=== PATIENT | male | born 1965 | race Caucasian/White ===

== ENCOUNTER 2020-11-11 10:56 | Outpatient (REF) | payer OTHER, SELFPAY ==
[2020-11-11 12:08] LABS: Alanine Aminotransferase 26 U/L (0-40); Albumin Level 4.4 g/dL (3.5-5.0); Alkaline Phosphatase 74 U/L (39-117); Aspartate Amino Transferase 20 U/L (5-37); Bilirubin Direct 0.4 mg/dL (0.0-0.5); Bilirubin Total 0.8 mg/dL (0.0-1.0); Cholesterol 150 mg/dL; HDL Cholesterol 63 mg/dL; LDL Cholesterol Calculated 79 mg/dl; Total Protein 6.6 g/dL (6.5-8.0); Triglycerides 44 mg/dL
[2020-11-11 12:25] LABS: Reflex LDLD? No
== END 2020-11-11 10:57 | disposition home or self-care (01) ==
LOC: HO.LNP 10:56
PROVIDERS: Visit Provider Internal Medicine
DX: E78.00 Pure hypercholesterolemia, unspecified (principal)
CPT/HCPCS: 80061; 80076

== ENCOUNTER 2021-04-26 10:04 | Outpatient (REF) | payer OTHER, SELFPAY ==
[2021-04-26 10:07] LABS: MANUAL DIFF FLAG NO
[2021-04-26 10:38] LABS: Basophils Percent Auto 0.6 % (0-2); Eosinophils Absolute Auto 0.3 X10*3/uL (0.0-0.4); Eosinophils Percent Auto 5.9 % (0-4); Hemoglobin 15.1 g/dl (14.0-18.0); Imm Gran Abs Auto 0.01 X10*3/uL (0.00-0.03); Imm Gran Pct Auto 0.2 % (0.0-0.4); Lymphocytes Absolute Auto 1.9 X10*3/uL (1.2-4.9); Lymphocytes Percent Auto 37.5 % (20-40); Mean Corpuscular HGB Conc 33.6 g/dl (31.0-36.0); Mean Corpuscular Hemoglobin 30.2 pg (27.0-33.0); Mean Platelet Volume 9.6 fL (9.4-12.4); Monocytes Absolute Auto 0.5 X10*3/uL (0.1-1.2); Monocytes Percent Auto 10.1 % (2-11); Neutrophils Absolute Auto 2.3 x10*3/uL (2.0-8.3); Neutrophils Percent Auto 45.7 % (45-73); Platelet Count 288 X10*3/uL (160-400); Red Cell Distribution Width 12.3 % (11.0-16.0); White Blood Count 4.9 X10*3/uL (4.8-10.8)
[2021-04-26 10:53] LABS: Alanine Aminotransferase 56 U/L (0-40); Albumin Level 4.5 g/dL (3.5-5.0); Alkaline Phosphatase 60 U/L (39-117); Anion Gap 13 (12-20); Aspartate Amino Transferase 35 U/L (5-37); Bilirubin Total 0.7 mg/dL (0.0-1.0); Blood Urea Nitrogen 14 mg/dL (9-16); Calcium 9.1 mg/dL (8.4-10.2); Carbon Dioxide 27 mmol/L (22-29); Chloride 106 mmol/L (96-108); Cholesterol 158 mg/dL; Estimated Glomerular Filt Rate > 60; Glucose Fasting 103 mg/dL (60-99); HDL Cholesterol 66 mg/dL; LDL Cholesterol Calculated 79 mg/dl; Sodium 142 mmol/L (135-145); Total Protein 6.9 g/dL (6.5-8.0); Triglycerides 67 mg/dL
[2021-04-26 11:09] LABS: Appearance Urine CLEAR; Color Urine YELLOW; Glucose Urine UA NEG (NEG); Leukocyte Esterase Urine NEG (NEG); Nitrite Urine NEG (NEG); Specific Gravity - Urine 1.025 (1.005-1.025); Urine Blood NEG (NEG); Urine Ketones NEG (NEG); Urine Protein TRACE MG/DL (NEG-TRACE)
[2021-04-26 11:17] LABS: PSA,Total (Free>4and<10) 0.53 ng/mL (0.00-4.00)
[2021-04-26 12:28] LABS: Reflex LDLD? No
== END 2021-04-26 10:05 | disposition home or self-care (01) ==
LOC: HO.LNP 10:04
PROVIDERS: PCP Internal Medicine; Visit Provider Internal Medicine
DX: Z00.00 Encounter for general adult medical examination without abnormal findings (principal); Z12.5 Encounter for screening for malignant neoplasm of prostate; R03.0 Elevated blood-pressure reading, without diagnosis of hypertension; R94.5 Abnormal results of liver function studies; E78.00 Pure hypercholesterolemia, unspecified; K58.9 Irritable bowel syndrome, unspecified
CPT/HCPCS: 80053; 80061; 81003; 84153; 85025

== ENCOUNTER 2022-05-02 11:44 | Outpatient (REF) | payer OTHER, SELFPAY ==
[2022-05-02 11:48] LABS: MANUAL DIFF FLAG NO
[2022-05-02 11:55] LABS: Appearance Urine Clear; Color Urine Yellow; Glucose Urine UA Negative (Negative); Leukocyte Esterase Urine Negative (Negative); Nitrite Urine Negative (Negative); PH 6.5 (5.0-9.0); Specific Gravity - Urine 1.025 (1.005-1.025); Urine Blood Negative (Negative); Urine Ketones Negative (Negative); Urine Protein Negative (Neg-Trace)
[2022-05-02 11:58] LABS: Bacteria Urine None Seen (None Seen); Hyaline Casts Urine 0-2 /LPF (0-2); RBC Urine 0-2 /HPF (0-2); Squamous Epithelial Cell Urine 0-2 /HPF (0-2); WBC Urine 0-5 /HPF (0-5)
[2022-05-02 11:59] LABS: Basophils Percent Auto 0.7 % (0-2); Eosinophils Absolute Auto 0.3 X10*3/uL (0.0-0.4); Eosinophils Percent Auto 4.9 % (0-4); Hematocrit 47.5 % (42.0-52.0); Hemoglobin 15.8 g/dl (14.0-18.0); Imm Gran Abs Auto 0.02 X10*3/uL (0.00-0.03); Imm Gran Pct Auto 0.4 % (0.0-0.4); Lymphocytes Absolute Auto 1.8 X10*3/uL (1.2-4.9); Lymphocytes Percent Auto 34.1 % (20-40); Mean Corpuscular HGB Conc 33.3 g/dl (31.0-36.0); Mean Corpuscular Hemoglobin 29.5 pg (27.0-33.0); Mean Corpuscular Volume 88.8 fL (80.0-98.0); Mean Platelet Volume 9.4 fL (9.4-12.4); Monocytes Absolute Auto 0.5 X10*3/uL (0.1-1.2); Monocytes Percent Auto 9.7 % (2-11); Neutrophils Absolute Auto 2.7 x10*3/uL (2.0-8.3); Neutrophils Percent Auto 50.2 % (45-73); Platelet Count 285 X10*3/uL (160-400); Red Blood Count 5.35 X10*6/uL (4.60-5.80); White Blood Count 5.3 X10*3/uL (4.8-10.8)
[2022-05-02 14:42] LABS: Alanine Aminotransferase 48 U/L (0-40); Albumin Level 4.6 g/dL (3.5-5.0); Alkaline Phosphatase 64 U/L (39-117); Anion Gap 13 (12-20); Aspartate Amino Transferase 29 U/L (5-37); Bilirubin Total 1.2 mg/dL (0.0-1.0); Blood Urea Nitrogen 16 mg/dL (9-16); Calcium 9.6 mg/dL (8.4-10.2); Carbon Dioxide 29 mmol/L (22-29); Chloride 102 mmol/L (96-108); Cholesterol 176 mg/dL; Estimated Glomerular Filt Rate > 60; Glucose Fasting 113 mg/dL (60-99); HDL Cholesterol 72 mg/dL; LDL Cholesterol Calculated 91 mg/dl; Potassium 4.1 mmol/L (3.3-5.1); Sodium 140 mmol/L (135-145); Total Protein 6.8 g/dL (6.5-8.0); Triglycerides 67 mg/dL
== END 2022-05-02 11:45 | disposition home or self-care (01) ==
LOC: HO.LNP 11:44
PROVIDERS: Visit Provider Internal Medicine
DX: Z00.00 Encounter for general adult medical examination without abnormal findings (principal); Z12.5 Encounter for screening for malignant neoplasm of prostate; E78.00 Pure hypercholesterolemia, unspecified
CPT/HCPCS: 80053; 80061; 81001; 84153; 85025

== ENCOUNTER 2022-05-12 11:52 | Outpatient (REF) | payer OTHER, SELFPAY ==
[2022-05-12 12:33] LABS: COVID-19 Test Negative (Negative); IDNOW Serial# 9DB6401D
== END 2022-05-12 11:53 | disposition home or self-care (01) ==
LOC: HO.LAB 11:52
PROVIDERS: Visit Provider Internal Medicine
DX: Z20.822 Contact with and (suspected) exposure to COVID-19 (principal)
CPT/HCPCS: 87635; C9803

== ENCOUNTER 2022-09-26 08:06 | Outpatient (REF) | payer OTHER, SELFPAY ==
--- NOTE | ~2022-09-26 | XR_ITS ---
EXAMINATION: XR chest 2V CLINICAL INFORMATION: Reason for Exam U07.1 COVID 19 COMPARISON: No prior chest x-ray available in our system for comparison at the time of this dictation. TECHNIQUE: XR chest 2V Lungs and Cielo: Both lungs are clear. Pleura: Normal. Costophrenic angles are sharp. No pneumothorax. Heart: The heart is normal in size. Mediastinum: The mediastinum is within normal limits.. Bones: Skeletal structures included are normal for patient's age. XR/XR chest 2V IMPRESSION: No radiographic evidence of acute cardiopulmonary disease.
== END 2022-09-26 08:07 | disposition home or self-care (01) ==
LOC: HO.HMGCX 08:06
PROVIDERS: PCP Internal Medicine; Visit Provider Internal Medicine
DX: U07.1 COVID-19 (principal)
CPT/HCPCS: 71046

== ENCOUNTER 2023-01-19 10:18 | Outpatient (REF) | payer OTHER, SELFPAY ==
[2023-01-19 10:50] LABS: Cholesterol 171 mg/dL; HDL Cholesterol 75 mg/dL; LDL Cholesterol Calculated 85 mg/dl; Triglycerides 55 mg/dL
[2023-01-19 10:52] LABS: Alanine Aminotransferase 28 U/L (0-40); Albumin Level 4.4 g/dL (3.5-5.0); Alkaline Phosphatase 61 U/L (39-117); Aspartate Amino Transferase 20 U/L (5-37); Bilirubin Direct 0.4 mg/dL (0.0-0.5); Bilirubin Total 0.9 mg/dL (0.0-1.0); Total Protein 6.9 g/dL (6.5-8.0)
[2023-01-19 13:50] LABS: Reflex LDLD? No
== END 2023-01-19 10:19 | disposition home or self-care (01) ==
LOC: HO.LNP 10:18
PROVIDERS: PCP Internal Medicine; Visit Provider Internal Medicine
DX: E78.00 Pure hypercholesterolemia, unspecified (principal)
CPT/HCPCS: 80061; 80076

== ENCOUNTER 2023-05-08 11:40 | Outpatient (REF) | payer OTHER, SELFPAY ==
[2023-05-08 11:44] LABS: MANUAL DIFF FLAG NO
[2023-05-08 11:53] LABS: Basophils Absolute Auto 0.1 X10*3/uL (0.0-0.2); Eosinophils Absolute Auto 0.2 X10*3/uL (0.0-0.4); Eosinophils Percent Auto 3.5 % (0-4); Hematocrit 47.4 % (42.0-52.0); Hemoglobin 15.7 g/dl (14.0-18.0); Imm Gran Abs Auto 0.02 X10*3/uL (0.00-0.03); Imm Gran Pct Auto 0.4 % (0.0-0.4); Lymphocytes Absolute Auto 1.9 X10*3/uL (1.2-4.9); Lymphocytes Percent Auto 37.3 % (20-40); Mean Corpuscular HGB Conc 33.1 g/dl (31.0-36.0); Mean Corpuscular Hemoglobin 30.1 pg (27.0-33.0); Mean Corpuscular Volume 90.8 fL (80.0-98.0); Mean Platelet Volume 9.5 fL (9.4-12.4); Monocytes Absolute Auto 0.6 X10*3/uL (0.1-1.2); Monocytes Percent Auto 10.8 % (2-11); Neutrophils Absolute Auto 2.5 x10*3/uL (2.0-8.3); Platelet Count 290 X10*3/uL (160-400); Red Blood Count 5.22 X10*6/uL (4.60-5.80); Red Cell Distribution Width 12.6 % (11.0-16.0); White Blood Count 5.2 X10*3/uL (4.8-10.8)
[2023-05-08 11:55] LABS: Appearance Urine Clear; Color Urine Yellow; Glucose Urine UA Negative (Negative); Leukocyte Esterase Urine Negative (Negative); Nitrite Urine Negative (Negative); PH 6.5 (5.0-9.0); Urine Blood Negative (Negative); Urine Ketones Negative (Negative); Urine Protein Trace mg/dL (Neg-Trace)
[2023-05-08 12:02] LABS: Bacteria Urine None Seen (None Seen); Hyaline Casts Urine 0-2 /LPF (0-2); RBC Urine 0-2 /HPF (0-2); Squamous Epithelial Cell Urine 0-2 /HPF (0-2); WBC Urine 0-5 /HPF (0-5)
[2023-05-08 12:27] LABS: PSA,Total (Free>4and<10) 0.63 ng/mL (0.00-4.00)
[2023-05-08 13:12] LABS: Alanine Aminotransferase 46 U/L (0-40); Albumin Level 4.8 g/dL (3.5-5.0); Alkaline Phosphatase 62 U/L (39-117); Anion Gap 12 (12-20); Aspartate Amino Transferase 32 U/L (5-37); Bilirubin Total 0.9 mg/dL (0.0-1.0); Blood Urea Nitrogen 15 mg/dL (9-16); Calcium 9.8 mg/dL (8.4-10.2); Carbon Dioxide 30 mmol/L (22-29); Chloride 104 mmol/L (96-108); Cholesterol 199 mg/dL (<200); Estimated Glomerular Filt Rate > 60; Glucose Fasting 100 mg/dL (60-99); HDL Cholesterol 79 mg/dL (>40); LDL Cholesterol Calculated 109 mg/dL (<100); Potassium 4.1 mmol/L (3.3-5.1); Sodium 142 mmol/L (135-145); Total Protein 7.4 g/dL (6.5-8.0); Triglycerides 56 mg/dL (<150)
== END 2023-05-08 11:41 | disposition home or self-care (01) ==
LOC: HO.LNP 11:40
PROVIDERS: Visit Provider Internal Medicine
DX: Z00.00 Encounter for general adult medical examination without abnormal findings (principal); Z12.5 Encounter for screening for malignant neoplasm of prostate; E78.00 Pure hypercholesterolemia, unspecified
CPT/HCPCS: 80053; 80061; 81001; 84153; 85025

== ENCOUNTER 2023-11-12 10:59 | Outpatient (REF) | payer OTHER, SELFPAY ==
[2023-11-12 12:27] LABS: Alanine Aminotransferase 57 U/L (0-40); Albumin Level 4.5 g/dL (3.5-5.0); Alkaline Phosphatase 72 U/L (39-117); Aspartate Amino Transferase 34 U/L (5-37); Bilirubin Direct 0.2 mg/dL (0.0-0.5); Bilirubin Total 0.7 mg/dL (0.0-1.0); Cholesterol 152 mg/dL (<200); HDL Cholesterol 68 mg/dL (>40); LDL Cholesterol Calculated 73 mg/dL (<100); Total Protein 6.8 g/dL (6.5-8.0); Triglycerides 58 mg/dL (<150)
== END 2023-11-12 11:00 | disposition home or self-care (01) ==
LOC: HO.LNP 10:59
PROVIDERS: Visit Provider Internal Medicine
DX: E78.00 Pure hypercholesterolemia, unspecified (principal)
CPT/HCPCS: 80061; 80076

== ENCOUNTER 2024-05-12 10:53 | Outpatient (REF) | payer OTHER, SELFPAY ==
[2024-05-12 10:55] LABS: MANUAL DIFF FLAG NO
[2024-05-12 11:30] LABS: Basophils Absolute Auto 0.1 X10*3/uL (0.0-0.2); Basophils Percent Auto 0.7 % (0-2); Eosinophils Absolute Auto 0.3 X10*3/uL (0.0-0.4); Eosinophils Percent Auto 4.4 % (0-4); Hematocrit 47.2 % (42.0-52.0); Hemoglobin 15.9 g/dl (14.0-18.0); Imm Gran Abs Auto 0.02 X10*3/uL (0.00-0.03); Imm Gran Pct Auto 0.3 % (0.0-0.4); Lymphocytes Absolute Auto 2.2 X10*3/uL (1.2-4.9); Lymphocytes Percent Auto 32.5 % (20-40); Mean Corpuscular HGB Conc 33.7 g/dl (31.0-36.0); Mean Corpuscular Hemoglobin 30.3 pg (27.0-33.0); Mean Corpuscular Volume 89.9 fL (80.0-98.0); Mean Platelet Volume 9.5 fL (9.4-12.4); Monocytes Absolute Auto 0.7 X10*3/uL (0.1-1.2); Monocytes Percent Auto 10.7 % (2-11); Neutrophils Absolute Auto 3.5 x10*3/uL (2.0-8.3); Neutrophils Percent Auto 51.4 % (45-73); Platelet Count 291 X10*3/uL (160-400); Red Blood Count 5.25 X10*6/uL (4.60-5.80); Red Cell Distribution Width 12.3 % (11.0-16.0); White Blood Count 6.8 X10*3/uL (4.8-10.8)
[2024-05-12 11:32] LABS: Appearance Urine Clear; Color Urine Yellow; Glucose Urine UA Negative (Negative); Leukocyte Esterase Urine Negative (Negative); Nitrite Urine Negative (Negative); Urine Blood Negative (Negative); Urine Ketones Negative (Negative); Urine Protein Trace mg/dL (Neg-Trace)
[2024-05-12 11:52] LABS: Alanine Aminotransferase 51 U/L (0-40); Albumin Level 4.6 g/dL (3.5-5.0); Alkaline Phosphatase 69 U/L (39-117); Anion Gap 13 (12-20); Aspartate Amino Transferase 43 U/L (5-37); Blood Urea Nitrogen 14 mg/dL (9-16); Calcium 9.7 mg/dL (8.4-10.2); Carbon Dioxide 29 mmol/L (22-29); Chloride 103 mmol/L (96-108); Cholesterol 171 mg/dL (<200); Estimated Glomerular Filt Rate > 60; Glucose Fasting 106 mg/dL (60-99); HDL Cholesterol 71 mg/dL (>40); LDL Cholesterol Calculated 88 mg/dL (<100); Potassium 4.1 mmol/L (3.3-5.1); Sodium 141 mmol/L (135-145); Total Protein 7.1 g/dL (6.5-8.0); Triglycerides 64 mg/dL (<150)
[2024-05-12 12:04] LABS: PSA,Total (Free>4and<10) 0.64 ng/mL (0.00-4.00)
--- OUTSIDE RECORDS SUMMARY | 2024-05-14 14:50 | XMS_ITS ---
Author Organization Chaka Mejia MD Address [address] [place] [phone] Care Team Providers Care Customs Compliance Director Name Role Phone Chaka Mejia Primary Care Provider [phone] REASON FOR VISIT Enrique Dawson - Yearly Bloodwork 05/12/2024 Encounters Encounter Location Date Provider Diagnosis Chaka Mejia MD [address] [place], [place] [phone] 03/31/2024 Chaka Mejia PLAN OF TREATMENT Next Appt Details Provider Name:Chaka carbajal, 05/20/2024 09:30:00 AM, [address], [address], [place], [place], [phone],
--- OUTSIDE RECORDS SUMMARY | 2024-05-14 14:50 | XMS_ITS ---
Author Organization Chaka Mejia MD Address [address] [place] [phone] Care Team Providers Care Dyslexia Teacher Name Role Phone Chaka Mejia Primary Care Provider [phone] ALLERGIES Allergen (clinical drug ingredient) Drug/Non Drug Allergy documented on EMR Reaction Allergy Type Onset Date Status ibuprofen Ibuprofen throat swelling Drug Allergy A ctive aspirin Aspirin throat swelling Drug Allergy A ctive naproxen Aleve throat swelling Drug Allergy A ctive REASON FOR VISIT 6 MO F/U MEDICATIONS Medication SIG (Take, Route, Frequency, Duration) Notes Start Date End Date Status Lansoprazole 30 MG TAKE 1 CAPSULE BY [place] [facility] EVERY DAY for 90 Active Cialis 20 MG 1/2 tablet Orally On a day 12/22/2016 Active Atorvastatin Calcium 20 MG TAKE 1 TABLET BY MOUTH EVERY DAY Active EpiPen 2-Ravi 0.3 MG/0.3ML as directed In jection once a day for reaction for 1 dose 09/21/2016 Active VITAL SIGNS BMI 23.76 kg/m2 11/19/2023 Blood pressure systolic 110 mm Hg 11/19/19 24 Blood pressure diastolic 60 mm Hg 024 Height 67.50 in 11/19/2023 Weight 154 lbs 11/19/2023 Encounters Encounter Location Date Provider Diagnosis Chaka Mejia MD [address] [place] [address] [address] [place], [place] [phone] 11/19/2023 Chaka Mejia Elevated LDL cholesterol level E78.00 and Elevated LFTs R79.89 ASSESSMENTS Encounter Date Diagnosis Assessment Notes Treatment Notes Treatment Clinical Notes 11/19/2023 Elevated LDL cholesterol level (ICD-10 - E78.00) stable, labs reviewed discussed with patient, will continue current regiment 11/19/2023 Elevated LFTs (ICD-10 - R79.89) is secondary to statins, will continue to monitor PLAN OF TREATMENT Medication Medication Name Sig Start Date Stop Date Notes Atorvastatin Calcium 20 MG TAKE 1 TABLET BY MOUTH EVERY DAY Treatment Notes Assessment Notes Elevated LDL cholesterol level stable, l abs reviewed discussed with patient, will continue current regiment Elevated LFTs is secondary to stat ins, will continue to monitor Next Appt Details Provider Name:Chaka Adams ier, 05/20/2024 09:30:00 AM, [address] [place] [address], [address], [place], [place], [phone], Progress Notes * Examination Category Sub-Category Detail Notes General Examination GENERAL APPEARANCE: alert, w ell hydrated, in no distress HEAD: normocephalic HEART: regular rate and rhy thm, no murmurs, rubs, gallops LUNGS: no wheezes, rales, r honchi, good air movement, clear to auscultation bilaterally ABDOMEN: no hepatosplenomegal y, has a small midline hernia SKIN: good turgor
--- OUTSIDE RECORDS SUMMARY | 2024-05-14 14:50 | XMS_ITS ---
Author Organization Chaka Mejia MD Address [address] [place], [place] [phone] Care Team Providers Care Community Outreach Coordinator Name Role Phone Chaka Mejia Primary Care Provider RESULTS Component Value Reference Range Notes Complete Blood Count Auto Di ff Reviewed date:05/13/2024 12:38:59 PM Interpretation: Performing Lab:[facility], [address] [place] [phone] Notes/Report: White Blood Count 6.8 4.8-10.8 X10*3/uL [...] NRBC Abs Auto 0.000 0.0-0.012 X10*3/uL Comprehensive [place]. Panel Fa st Reviewed date:05/12/2024 12:55:17 PM Interpretation: Performing Lab:[facility], [address] [place] [phone] Notes/Report: Sodium 141 135-145 mmol/L Potassium 4.1 [...] Panel Reviewed date:05/12/2024 12:55:42 PM Interpretation: Performing Lab:[address] [phone] Notes/Report: Triglycerides 64 <150 mg/dL Desirable Triglyceride: [...] (Free>4and<10) Reviewed date:05/12/2024 12:55:24 PM Interpretation: Performing Lab:[facility], [address] [place] [phone] Notes/Report: PSA,Total (Free>4and<10) 0.64 0.00-4.00 ng/mL A [...] between 4.0 and 10.0 ng/mL. PSA methodology: clypdnity i Chemiluminescent Microparticle Immunoassay (CMIA) REASON FOR VISIT FASTING LABS with testosterone per pt request MEDICATIONS Medication SIG (Take, Route, Frequency, Duration) Notes Start Date End Date Status Lansoprazole 30 MG TAKE 1 CAPSULE BY [facility] EVERY DAY for 90 Active Atorvastatin Calcium 20 MG TAKE 1 TABLET BY MOUTH EVERY DAY Active Cialis 20 MG 1/2 tablet Orally On ce a day 12/22/2016 Active EpiPen 2-Ravi 0.3 MG/0.3ML as directed In jection once a day for reaction for 1 dose 09/21/2016 Active Encounters Encounter Location Date Provider Diagnosis Chaka Mejia MD [address] [place] [address] Drive [address] [place], [place] [phone] 05/12/2024 Chaka Mejia Blood tests for routine general physical examination Z00.00 ; Elevated LDL cholesterol level E78.00 and Erectile dysfunction, unspecified erectile dysfunction type N52.9 ASSESSMENTS Encounter Date Diagnosis Assessment Notes Treatment Notes Treatment Clinical Notes 05/12/2024 Blood tests for routine general physical examination (ICD-10 - Z00.00) 05/12/2024 Elevated LDL cholesterol level (ICD-10 - E78.00) 05/12/2024 Erectile dysfunction, unspecified erectile dysfunction type (ICD-10 - N52.9) PLAN OF TREATMENT Pending Test Test Name Order Date Testosterone, Free/Total 05/12/2024 UA ClnCatch+Micro w/rflx Cult 05/12/2024 Next Appt Details Provider Name:Chaka carbajal, 05/20/2024 09:30:00 AM, [address] [place] [address], [address], [place], [place], [phone],
--- OUTSIDE RECORDS SUMMARY | 2024-05-14 14:51 | XMS_ITS | Patient Health Record ---
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 Phone Chaka Mejia Primary Care Provider ALLERGIES Allergen (clinical drug ingredient) Drug/Non Drug Allergy documented on EMR Reaction Allergy Type Onset Date Status ibuprofen Ibuprofen throat swelling Drug Allergy A ctive aspirin Aspirin throat swelling Drug Allergy A ctive naproxen Aleve throat swelling Drug Allergy A ctive RESULTS Component Value Reference Range Notes Occult Blood, Stool, Guaiac Reviewed date:05/21/2023 08:42:43 AM Interpretation: Performing Lab: Notes/Report: Occult Blood, Stool, Guaiac Neg Liver Panel Reviewed date:11/12/2023 12:34:35 PM Interpretation: Performing Lab:[facility], [address] [place] [phone] Notes/Report: Bilirubin Total 0.7 0.0-1.0 mg/dL Bilirubin Direct 0.2 0.0-0.5 mg/dL Aspartate Amino Transferase 34 5-37 U/L Alanine Aminotransferase 57 0-40 U/L Total Protein 6.8 6.5-8.0 g/dL Albumin Level 4.5 3.5-5.0 g/dL Alkaline Phosphatase 72 39-117 U/L Lipid Panel Reviewed date:11/12/2023 12:41:38 PM Interpretation: Performing Lab:[address] [phone] Notes/Report: Triglycerides 58 <150 mg/dL Desirable Triglyceride: less than 150 mg/dL Borderline High Triglyceride 150-199 mg/dL High Triglyceride: 200-499 mg/dL Very High Triglyceride: greater than or equal to 5OO mg/dL Cholesterol 152 <200 mg/dL Desirable Cholesterol: less than 200 mg/dL Borderline High Cholesterol: 200-239 mg/dL High Cholesterol: greater than 239 mg/dL LDL Cholesterol Calculated 73 <100 mg/dL Desirable LDL: less than 100 mg/dL Near Optimal/Above Optimal LDL: 110-129 mg/dL Borderline High LDL: 130-159 mg/dL High LDL: 160-189 mg/dL Very High LDL: greater than or equal to 190 mg/dL HDL Cholesterol 68 >40 mg/dL Desirable HDL: greater than 40 mg/dL Note: This HDL assay may give artificially low results in patients with liver disease. UA CC w/rflx Micro + Cult Reviewed date:05/12/2024 01:00:55 PM Interpretation: Performing Lab:[facility], [address] [place] [phone] Notes/Report: Urine, Clean Catch Color Urine Yellow Appearance Urine Clear PH 8.0 5.0-9.0 Glucose Urine UA Negative Negative mg/dL Urine Blood Negative Negative Specific [place] - Urine 1.020 1.005-1.025 Urine Protein Trace Neg-Trace mg/dL Urine Ketones Negative Negative mg/dL Nitrite Urine Negative Negative Leukocyte Esterase Urine Negative Negative Complete Blood Count Auto Di ff Reviewed date:05/13/2024 12:38:59 PM Interpretation: Performing Lab:[address] [phone] Notes/Report: White Blood Count 6.8 4.8-10.8 X10*3/uL [...] NRBC Abs Auto 0.000 0.0-0.012 X10*3/uL Comprehensive [place]. Panel Fa st Reviewed date:05/12/2024 12:55:17 PM Interpretation: Performing Lab:[facility], [address] [place] [phone] Notes/Report: Sodium 141 135-145 mmol/L Potassium 4.1 [...] Panel Reviewed date:05/12/2024 12:55:42 PM Interpretation: Performing Lab:[address] [phone] Notes/Report: Triglycerides 64 <150 mg/dL Desirable Triglyceride: [...] (Free>4and<10) Reviewed date:05/12/2024 12:55:24 PM Interpretation: Performing Lab:[address] [phone] Notes/Report: PSA,Total (Free>4and<10) 0.64 0.00-4.00 ng/mL A [...] between 4.0 and 10.0 ng/mL. PSA methodology: Spinal [place] Alinity i Chemiluminescent Microparticle Immunoassay (CMIA) REASON FOR REFERRAL No Information MEDICATIONS Medication SIG (Take, Route, Frequency, Duration) Notes Start Date End Date Status Lansoprazole 30 MG TAKE 1 CAPSULE BY [facility] EVERY DAY for 90 Active Atorvastatin Calcium 20 MG TAKE 1 TABLET BY MOUTH EVERY DAY Active Cialis 20 MG 1/2 tablet Orally On a day 12/22/2016 Active EpiPen 2-Ravi 0.3 MG/0.3ML as directed In jection once a day for reaction for 1 dose 09/21/2016 Active IMMUNIZATIONS Vaccine Route Administration Date Status Comme nts Flu Vaccine Unknown 03/06/2016 Administered was given t he vaccine at work Fluarix Quadrivalent Unknown 02/13/2017 Administered [facility] TDaP Unknown 03/31/2020 Administered [facility] Covid Vaccine Unknown 08/25/2020 Administered Pfzier [facility] Tetanus Unknown 03/31/2020 Administered SARS-COV-2 Pfizer Unknown 09/15/2020 Administered Fluarix Quadrivalent Unknown 02/24/2021 Administered Fluarix Quadrivalent Unknown 04/24/2022 Administered At Work PPSV23 (Pnemovax) Unknown 10/09/2022 Refused SOCIAL HISTORY Tobacco Use: Social History Observation Description Date Details (start date - stop date) Never Smoker NA - NA Sex Assigned At : Social History Observation Description Sex Assigned At Unknown Tobacco Use/Smoking Question Answer Notes Patient is a nonsmoker Additional Findings: Tobacco Non-User Cu rrent non-smoker, currently using no form of tobacco Alcohol Screen Question Answer Notes Did you have a drink contain ing alcohol in the past year? Yes How often did you have a dri nk containing alcohol in the past year? 4 or more times a week (4 points) How many drinks did you have on a typical day when you were drinking in the past year? 1 or 2 drinks (0 point) How often did you have 6 or more drinks on one occasion in the past year? Never (0 point) Points 4 Interpretation Positive PROBLEMS Problem Type ICD Code Onset Dates Problem Status W/U Status Risk SNOMED Code Notes Problem Reflux esophagitis (K21.00) Active confirmed 480531894 Problem Erectile dysfunction, unspecified erectile dysfunction type (N52.9) Active confirmed 756035015 Problem Elevated LDL cholesterol level (E78.00) Active confirmed 804395744 Problem IBS (irritable bowel syndrome) (K58.9) Active confirmed Irritable bowel syndrome (33748242) Problem History of hay fever (Z87.09) Active confirmed 352895268 Problem History of allergy to NSAID (Z88.6) Active confirmed 570561607 VITAL SIGNS Blood pressure diastolic 60 mm Hg 11/19/2023 Height 67.50 in 11/19/2023 Blood pressure systolic 110 mm Hg 11/19/2023 Weight 154 lbs 11/19/2023 BMI 23.76 kg/m2 11/19/2023 Encounters Encounter Location Date Provider Diagnosis Chaka Mejia MD [address] [place] [id number] 05/17/2023 Chaka Mejia History of allergy to NSAID Z88.6 ; Annual physical exam Z00.00 ; Elevated LDL cholesterol level E78.00 ; Erectile dysfunction, unspecified erectile dysfunction type N52.9 ; Colon cancer screening Z12.11 and Depression screening Z13.31 Chaka Mejia MD [address] [place] [id number] 07/11/2023 Chaka Mejia MD [address] [place] [id number] 05/12/2024 Chaka Mejia Blood tests for routine general physical examination Z00.00 ; Elevated LDL cholesterol level E78.00 and Erectile dysfunction, unspecified erectile dysfunction type N52.9 Chaka Mejia MD [address] [place] [id number] 11/12/2023 Chaka Mejia Elevated LDL cholesterol level E78.00 Chaka Mejia MD [address] [place] [id number] 11/19/2023 Chaka Mejia Elevated LDL cholesterol level E78.00 and Elevated LFTs R79.89 Chaka Mejia MD [address] [place] [address] [id number] 03/31/2024 Chaka Mejia ASSESSMENTS Encounter Date Diagnosis Assessment Notes Treatment Notes Treatment Clinical Notes 05/17/2023 Annual physical exam (ICD-10 - Z00.00) is doing great, ;abs reviewed anbd discussed with patient 05/17/2023 History of allergy to NSAID (ICD-10 - Z88.6) has epipen 05/12/2024 Elevated LDL cholesterol level (ICD-10 - E78.00) 05/12/2024 Blood tests for routine general physical examination (ICD-10 - Z00.00) 11/12/2023 Elevated LDL cholesterol level (ICD-10 - E78.00) 11/19/2023 Elevated LFTs (ICD-10 - R79.89) is secondary to statins, will continue to monitor 11/19/2023 Elevated LDL cholesterol level (ICD-10 - E78.00) stable, labs reviewed discussed with patient, will continue current regiment 05/17/2023 Elevated LDL cholesterol level (ICD-10 - E78.00) stable, will continue current regiment 05/12/2024 Erectile dysfunction, unspecified erectile dysfunction type (ICD-10 - N52.9) 05/17/2023 Erectile dysfunction, unspecified erectile dysfunction type (ICD-10 - N52.9) doing well, will continuecurrent regiment 05/17/2023 Colon cancer screening (ICD-10 - Z12.11) guaiac negative 05/17/2023 Depression screening (ICD-10 - Z13.31) negative screen PLAN OF TREATMENT Pending Test Test Name Order Date Electrocardiogram (EKG) 06/16/2016 CT ABD & PELVIS WITH CONTRAST 10/28/2021 CT ABD & PELVIS WITH CONTRAST 10/09/2011 CT ABD & PELVIS NO CONTRAST 10/28/2021 XR CHEST 2 VIEW PA & LAT 09/25/2022 Testosterone, Free/Total 05/12/2024 UA ClnCatch+Micro w/rflx Cult 05/12/2024 Next Appt Details Provider Name:Chaka carbajal, 05/20/2024 09:30:00 AM, [address] [place] [address], [address], [place], [place], [phone], Insurance Providers Payer Name Payer Address Payer Phone Subscriber Number Group Number Insured Name Patient Relationship to Insured Coverage Start Date Coverage End Date [employer]Z [employer] [address] [place] Nuñez [phone] [id number] Enrique Dawson Self - patient is the insured 6
[2024-05-16 17:38] LABS: Testosterone, Free 89.7 pg/mL (35.0-155.0); Testosterone, Total 477 ng/dL (250-1100)
== END 2024-05-12 10:54 | disposition home or self-care (01) ==
LOC: HO.LNP 10:53
PROVIDERS: Visit Provider Internal Medicine
DX: Z00.00 Encounter for general adult medical examination without abnormal findings (principal); E78.00 Pure hypercholesterolemia, unspecified; N52.9 Male erectile dysfunction, unspecified; Z12.5 Encounter for screening for malignant neoplasm of prostate
CPT/HCPCS: 80053; 80061; 81003; 84153; 84402; 84403; 85025

== ENCOUNTER 2024-10-09 09:51 | Outpatient (REF) | payer OTHER, SELFPAY ==
[2024-10-09 10:20] LABS: Alanine Aminotransferase 42 U/L (0-40); Albumin Level 4.6 g/dL (3.5-5.0); Alkaline Phosphatase 70 U/L (39-117); Aspartate Amino Transferase 34 U/L (5-37); Bilirubin Direct 0.4 mg/dL (0.0-0.5); Cholesterol 170 mg/dL (<200); HDL Cholesterol 66 mg/dL (>40); LDL Cholesterol Calculated 91 mg/dL (<100); Total Protein 7.2 g/dL (6.5-8.0); Triglycerides 67 mg/dL (<150)
--- OUTSIDE RECORDS SUMMARY | 2024-10-09 10:43 | XMS_ITS ---
Author Organization Chaka Mejia MD Address [address] [place] [phone] Care Team Providers Care Cableway Operator Name Role Phone Chaka Mejia Primary Care [...] Lansoprazole 30 MG TAKE 1 CAPSULE BY [facility] EVERY DAY for 90 Active EpiPen 2-Ravi [...] Location Date Provider Diagnosis Chaka Mejia MD [address] [place] [address] [place] [phone] 05/20/2024 Chaka Mejia Aspirin allergy Z88.8 ; [...] (ICD-10 - Z12.11) Cologuard order faxed to [facility] 05/20/2024 Encounter for screening for malignant neoplasm [...] neoplasm of colon Cologuard order faxed to [facility] IBS (irritable bowel syndrome) doing wel l off coffee Elevated LDL cholesterol level on statin s doing a little elevation, will continue current regiment and will contnue to monitor Colon cancer screening guaiac negative Depression screening negative screen Pending Test Test Name Order Date Liver Panel 05/20/2024 Lipid Panel 05/20/2024 Next Appt Details Follow Up: 6 Months, Reason: Provider Name:Chaka carbajal, 10/14/2024 09:00:00 AM, [address] [place] [address], [address] [place] [address], [phone], Provider Name:Chaka carbajal, 05/19/2025 07:15:00 AM, [address] [place] [address], Suite [facility], [place], [place], [phone], Provider Name:Chaka carbajal, 05/26/2025 10:30:00 AM, [address] [place] [address], [address] [place] [address], [phone], Progress Notes * More DAWSON:1965 (58 yo M)Acc No.[id number]:05/20/2024 Progress Notes Patient:Enrique Pyle Provider:?Chaka Mejia MD :1965???Age:58 Y???Sex:Male Humza e:05/20/2024 Address:[address] [place], [place] [phone] Subjective: * Chief Complaints: * ???Annual * HPI: ???Depression Screening:?PHQ-9?Little interest or pleasure in doing things?Not at all,?Feeling down, depressed, or hopeless?Not at all,?Trouble falling or staying asleep, or sleeping too much?Not at all,?Feeling tired or having little energy?Not at all,?Poor appetite or overeating?Not at all,?Feeling bad about yourself or that you are a failure, or have let yourself or your family down?Not at all,?Trouble concentrating on things, such as reading the newspaper or watching television?Not at all,?Moving or speaking so slowly that other people could have noticed; or the opposite, being so fidgety or restless that you have been moving around a lot more than usual?Not at all,?Thoughts that you would be better off or of hurting yourself in some way?Not at all,?Total Score?0.?Interpretation and Intervention?Depression Screening Findings?Negative,?Follow-Up for Depression?: review of PHQ-9 found negative result, no follow-up needed.?Communication Needs:?Communication Needs?Does the patient have a hearing impairment?No,?Does the patient have a vision impairment??No,?Does the patient have a cognition impairment??No.?SDOH Questions:?SDOH Questions?In the past year have you been worried about losing housing??No,?In the past year have you or any family members you live with been unable to get any of the following when it was really needed? Check all that apply:?None.?Symptom(s):? patient is a 58 yo male here for annual visit with review of recent labs and follow up of chronic issues. * ROS:?General/Constitutional:?Patient denies?fatigue , headache.?Change in appetite?denies.?Chills?denies.?Fever?denies.?Ophthalmologic:?Blurred vision?denies.?Discharge?denies.?Pain?denies.?ENT:?Patient denies?decreased sense of smell , any loss of taste , sore throat.?Decreased hearing?denies.?Sore throat?denies.?Swollen glands?denies.?Endocrine:?Cold intolerance?denies.?Excessive thirst?denies.?Heat intolerance?denies.?Weight loss?denies.?Respiratory:?Cough?denies.?Shortness of breath at rest?denies.?Shortness of breath with exertion?denies.?Wheezing?denies.?Cardiovascular:?Chest pain at rest?denies.?Chest pain with exertion?denies.?Irregular heartbeat?denies.?Shortness of breath?denies.?Gastrointestinal:?Abdominal pain?denies.?Change in bowel habits?denies.?Diarrhea?denies.?Nausea?denies.?Rectal bleeding?denies.?Vomiting?denies .?Genitourinary:?Blood in urine?denies.?Difficulty urinating?denies.?Frequent urination?denies.?Musculoskeletal:?Patient denies?muscle aches.?Painful joints?denies.?Weakness?denies.?Peripheral Vascular:?Patient denies?red and blue toes.?Skin:?Dry skin?denies.?Itching?denies.?Denies?Mole(s),? changes in moles, new moles or any lesions of concern.?Denies?Photosensitivity.?Rash?denies.?Neurologic:?Dizziness?denies.?Fainting?denies.?Headache?denies.? * Medical History:? * Surgical History:? * Hospitalization/Major Diagno stic Procedure:? * Family History:?Father: jasper davidson 74 yrs.?Mother: 72 yrs.?1 son(s) , 1 daughter(s) . .? Father-Healthy Mother- Healthy, Denies mental health/substance abuse family history, No pertinent family medical history, Denies mental health/substance abuse family history, Denies mental health/substance abuse family history, Denies mental health/substance abuse family history. * Social History:?Tobacco Use:?Tobacco Use/Smoking?Patient is a?nonsmoker,?Additional Findings: Tobacco Non-User?Current non-smoker, currently using no form of tobacco.?Drugs/Alcohol:?Alcohol Screen?Did you have a drink containing alcohol in the past year??Yes,?How often did you have a drink containing alcohol in the past year??Monthly or less (1 point),?How many drinks did you have on a typical day when you were drinking in the past year??1 or 2 drinks (0 point),?How often did you have 6 or more drinks on one occasion in the past year??Never (0 point),?Points?1,?Interpretation?Negative.?Miscellaneous:?Caffeine: yes, frequency:, 1-2 cups per day. Children: yes. Exercise: yes, weights 4 times a week. Home smoke detector use: yes. Housing: owning. Living with: spouse. Occupation: weeks/months/years, works full-time. Pets: none. no Travel outside of the [place]. * Medications:?TakingEpiPen 2- Ravi 0.3 MG/0.3ML Solution Auto-injector as directed Injection [...] reviewed and reconciled with the patient * Allergies:?Aspirin: throat s wellingIbuprofen: throat swellingAleve: throat swellingyes[Allergies Verified] Objective: * Vitals:?Ht: 67.50, Wt:159, B PR:24.53, BP:122/80 weight is up 5 pounds since 11-19-23. * ???Past Orders: ???Lab:Comprehensive [facility]. P charles Fast (Order Date - 05/12/2024) (Collection Date - 05/12/2024) ? Value Reference Range ?Sodium 141 135-145 - mmo l/L ?Bilirubin Total 1.0 0.0- 1.0 - mg/dL ?Aspartate Amino Transferase 43 H 5-37 - U/L ?Alanine Aminotransferase 51 H 0-40 - U/L ?Total Protein 7.1 6.5-8. 0 - g/dL ?Albumin Level 4.6 3.5-5. 0 - g/dL ?Alkaline Phosphatase 69 39-117 - U/L ?Potassium 4.1 3.3-5.1 - mmol/L ?Chloride 103 96-108 - mm ol/L ?Carbon Dioxide 29 22-29 - mmol/L ?Anion Gap 13 12-20 - ?Blood Urea Nitrogen 14 9-16 - mg/dL ?Creatinine 0.87 0.5-1.4 - mg/dL ?Estimated Glomerular Filt Rate > 60 - ?Glucose Fasting 106 H 60-9 9 - mg/dL ?Calcium 9.7 8.4-10.2 - m g/dL ???Lab:UA CC w/rflx Micro + Cult (Order Date - 05/12/2024) (Collection Date - 05/12/2024) ? Value Reference Range ?Color Urine Yellow - ?Appearance Urine Clear - ?PH 8.0 5.0-9.0 - ?Glucose Urine UA Negative Neg ative - mg/dL ?Urine Blood Negative Negative - ?Specific Falls - Urine 1.020 1.005-1.025 - ?Urine Protein Trace Neg-Tr cynthia - mg/dL ?Urine Ketones Negative Negati ve - mg/dL ?Nitrite Urine Negative Negati ve - ?Leukocyte Esterase Urine Negative Negative - ???Lab:PSA,Total (Free>4and< 10) (Order Date - 05/12/2024) (Collection Date - 05/12/2024) ? Value Reference Range ?PSA,Total (Free>4and<10) 0.64 0.00-4.00 - ng/mL ???Lab:Lipid Panel (Order Da - 05/12/2024) (Collection Date - 05/12/2024) ? Value Reference Range ?Triglycerides 64 <150 - mg/dL ?Cholesterol 171 <200 - m g/dL ?LDL Cholesterol Calculated 88 <100 - mg/dL ?HDL Cholesterol 71 >40 - mg/dL ???Lab:Complete Blood Count Auto Diff (Order Date - 05/12/2024) (Collection Date - 05/12/2024) ? Value Reference Range ?White Blood Count 6.8 4. 8-10.8 - X10*3/uL ?Red Blood Count 5.25 4.60 -5.80 - X10*6/uL ?Hemoglobin 15.9 14.0-18.0 - g/dl ?Hematocrit 47.2 42.0-52.0 - % ?Mean Corpuscular Volume 89.9 80.0-98.0 - fL ?Mean Corpuscular Hemoglobin 30.3 27.0-33.0 - pg ?Mean Corpuscular HGB Conc 33.7 31.0-36.0 - g/dl ?Red Cell Distribution Width 12.3 11.0-16.0 - % ?Platelet Count 291 160-4 00 - X10*3/uL ?Mean Platelet Volume 9.5 9.4-12.4 - fL ?Neutrophils Percent Auto 51.4 45-73 - % ?Imm Gran Pct Auto 0.3 0. 0-0.4 - % ?Lymphocytes Percent Auto 32.5 20-40 - % ?Monocytes Percent Auto 10.7 2-11 - % ?Eosinophils Percent Auto 4.4 H 0-4 - % ?Basophils Percent Auto 0.7 0-2 - % ?NRBC Pct Auto 0.0 0.0-0. 2 - /100WBC ?Neutrophils Absolute Auto 3.5 2.0-8.3 - x10*3/uL ?Imm Gran Abs Auto 0.02 0. 00-0.03 - X10*3/uL ?Lymphocytes Absolute Auto 2.2 1.2-4.9 - X10*3/uL ?Monocytes Absolute Auto 0.7 0.1-1.2 - X10*3/uL ?Eosinophils Absolute Auto 0.3 0.0-0.4 - X10*3/uL ?Basophils Absolute Auto 0.1 0.0-0.2 - X10*3/uL ?NRBC Abs Auto 0.000 0.0-0. 012 - X10*3/uL ???Lab:Testosterone, Free/To polly (Order Date - 05/12/2024) (Collection Date - 05/12/2024) ? Value Reference Range ?Testosterone, Total 966 364-5851 - ng/dL ?Testosterone, Free 89.7 3 5.0-155.0 - pg/mL * Examination: ???General Examination: ?GENERAL APPEARANCE:?well developed, well nourished, in no acute distress.?HEAD:?normocephalic, atraumatic.?EYES:?pupils equal, round, reactive to light and accommodation, sclera non-icteric.?EARS:?normal.?ORAL CAVITY:?mucosa moist.?THROAT:?clear.?NECK/THYROID:?neck supple, full range of motion, no cervical lymphadenopathy, no bruits.?SKIN:?warm and dry, no suspicious lesions.?HEART:?regular rate and rhythm, S1, S2 normal, no murmurs.?LUNGS:?clear to auscultation bilaterally.?ABDOMEN:?soft, nontender, nondistended, bowel sounds present, normal, no organomegaly , no masses palpable.?RECTAL EXAM:?normal tone, no external hemorrhoids, no masses palpable, prostate normal, stool guaiac negative.?MALE GENITOURINARY:?circumcised , no testicular mass , testes descended bilaterally.?EXTREMITIES:?no clubbing, cyanosis, or edema.?NEUROLOGIC:?nonfocal, motor strength normal upper and lower extremities, sensory exam intact.? Assessment: * Assessment: 1.?Annual physical exam - Z0 0.00 (Primary)?2.?Aspirin allergy - Z88.8?3.?Back muscle spasm - M62.830?4.?Encounter for screening for malignant neoplasm of colon - Z12.11?5.?Encounter for screening for malignant neoplasm of rectum - Z12.12?6.?IBS (irritable bowel syndrome) - K58.9?7.?Elevated LDL cholesterol level - E78.00?8.?Colon cancer screening - Z12.11?9.?Depression screening - Z13.31? Plan: * Treatment: 2.?Aspirin allergy? Refill EpiPen 2-Ravi Solution Auto-injector, 0.3 MG/0.3ML, as directed, Injection, once a day for reaction, 1 dose, 2, Refills 4.?LAB: Liver Panel (Ordered for 11/18/2024) ?LAB: Lipid Panel (Ordered for 11/18/2024) 3.?Back muscle spasm? Start tiZANidine HCl Tablet, 4 MG, 1 tablet at bedtime as needed, Orally, Once a day, 30 days, 20, Refills 1.?? 4.?Encounter for screening f or malignant neoplasm of colon?LAB: COLOGUARD Notes: Cologuard order faxed to [facility]?? 5.?Encounter for screening f or malignant neoplasm of rectum?LAB: COLOGUARD 6.?IBS (irritable bowel synd maryse)? Notes: doing well off coffee?? 7.?Elevated LDL cholesterol level? Continue Atorvastatin Calcium Tablet, 20 MG, TAKE 1 TABLET BY MOUTH EVERY DAY.?? Notes: on statins doing a little elevation, will continue current regiment and will contnue to monitor?? 8.?Colon cancer screening? Notes: guaiac negative?? 9.?Depression screening? Notes: negative screen?? * Procedure Codes:? * Follow Up:?6 Months * * Sign off status: Completed true * Provider:?Chaka Mejia MD Date:?1 07/21/2023 Generated for Shawnee campuzano/Luis/eTransmitting on:?10/09/2024 10:43 AM EDT History and Physical Notes * HPI (History [...]
--- OUTSIDE RECORDS SUMMARY | 2024-10-09 10:43 | XMS_ITS ---
Author Organization Chaka Mejia MD Address [address] [place] [phone] Care Team Providers Care Electronics Maintenance Technician Name Role Phone Chaka Mejia Primary Care Provider [phone] Allergies Allergen (clinical drug ingredient) Drug/Non Drug [...] Lansoprazole 30 MG TAKE 1 CAPSULE BY [facility] EVERY DAY for 90 Active [...] Location Date Provider Diagnosis Chaka Mejia MD [address] [place] [phone] 07/25/2024 Chaka Mejia Social phobia involving fear [...] for use Next Appt Details Provider Name:Chaka carbajal, 10/14/2024 09:00:00 AM, [address] [place] [address], [phone], Provider Name:Chaka carbajal, 05/19/2025 07:15:00 AM, [address] [place] [address], [phone], Provider Name:Chaka carbajal, 05/26/2025 10:30:00 AM, [address] [place] [address], [phone], Progress Notes * Dakota DAWSONOB:1965 (58 yo M)Acc No.[id number]:07/25/2024 Progress Notes Patient:?Enrique DAWSON Provider:?Chaka Mejia MD :1965???Age:58 Y???Sex:Male Humza e:07/25/2024 Address: [id number] Subjective: * Chief Complaints: * ???Discuss anxiety * HPI: ???Symptom(s):?patient is a 58 yo male here to discuss issues with anxiety, has struggled with anxiety especially with presentations. does get it with flying. * ROS:?General/Constitutional:?Denies?Chills.?Denies?Fatigue.?Denies?Fever.?Denies?Headache.?ENT:?Patient denies?decreased sense of smell, any loss of taste, sore throat.?Denies?Sore throat.?Respiratory:?Denies?Cough.?Denies?Shortness of breath at rest.?Denies?Shortness of breath with exertion.?Gastrointestinal:?Denies?Diarrhea.?Denies?Nausea.?Musculoskeletal:?Patient denies?muscle aches.?Peripheral Vascular:?Patient denies?red and blue toes.?Psychiatric:?Admits?Anxiety.?Denies?Depressed mood.?Denies?Difficulty sleeping.?Denies?Eating disorder.?Denies?Suicidal thoughts.? * Medical History:? * Surgical History:? * Hospitalization/Major Diagno stic Procedure:? * Medications:?TakingCialis 20 MG Tablet 1/2 tablet Orally Once [...] throat swellingyes[Allergies Verified] Objective: * Vitals:?Ht: 67.50, Wt: 161, BMI:24.84, BP:148/64, Repeat BP:150/70, Wt-k.03. * Examination: ???General Examination: ?GENERAL APPEARANCE:?alert, well hydrated, in no distress.?SKIN:?good turgor.?HEART:?no murmurs, rubs, gallops, regular rate and rhythm.?LUNGS:?no wheezes, rales, rhonchi, good air movement, clear to auscultation bilaterally.? 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 Plan: * Treatment: * Procedure Codes:? * * Sign off status: Completed true * Provider:?Chaka Mejia MD Date:?0 07/25/2024 Generated for Shawnee campuzano/Luis/Asheritting on:?10/09/2024 10:43 AM EDT History and Physical [...]
--- OUTSIDE RECORDS SUMMARY | 2024-10-09 10:43 | XMS_ITS ---
Author Organization Chaka Mejia MD Address [address] [place] [phone] Care Team Providers Care Protohistorian Name Role Phone Chaka Mejia Primary Care Provider Results Component Value Reference Range Notes Liver Panel (Not yet reviewe d by provider) Interpretation: Performing Lab:[facility], [address] [place] [phone] Notes/Report: Bilirubin Total 1.0 0.0-1.0 mg/dL Bilirubin Direct 0.4 0.0-0.5 mg/dL Aspartate Amino Transferase 34 5-37 U/L Alanine Aminotransferase 42 0-40 U/L Total Protein 7.2 6.5-8.0 g/dL Albumin Level 4.6 3.5-5.0 g/dL Alkaline Phosphatase 70 39-117 U/L Lipid Panel (Not yet reviewe d by provider) Interpretation: Performing Lab:[facility], [address] [place] [address] Notes/Report: Triglycerides 67 <150 mg/dL Desirable Triglyceride: [...] Location Date Provider Diagnosis Chaka Mejia MD [address] [place] [address] [place] [phone] 10/09/2024 Chaka Mejia Elevated LDL cholesterol level E78.00 and Aspirin allergy Z88.8 Assessments Encounter Date Diagnosis (ICD Code) Assessment Notes Treatment Notes Treatment Clinical Notes Section Notes 10/09/2024 Elevated LDL cholesterol level (ICD-10 - E78.00) 10/09/2024 Aspirin allergy (ICD-10 - Z88.8) Plan Of Treatment Pending Test Test Name Order Date Liver Panel 10/09/2024 Lipid Panel 10/09/2024 Next Appt Details Provider Name:Chaka carbajal, 10/14/2024 09:00:00 AM, [address] [place] [address], [address], [phone], Provider Name:Chaka carbajal, 05/19/2025 07:15:00 AM, [address] [place] [address], [address], [phone], Provider Name:Chaka carbajal, 05/26/2025 10:30:00 AM, [address] [place] [address], [address], [phone], Progress Notes * Don DAWSONneDOB:1965 (59 yo M)Acc No.[id number]:10/09/2024 Progress Note Patient:?Enrique DAWSON Provider:?Chaka Mejia MD :1965???Age:59 Y???Sex:Male Humza e:10/09/2024 Address:[address] [place], [place] [phone] Subjective: * Chief Complaints: * ???1. Fasting liver lipids. * Medical History:? Objective: * Vitals:? Assessment: * Assessment: 1.?Elevated LDL cholesterol level - E78.00 (Primary)???2.?Aspirin allergy - Z88.8??? Plan: * Treatment: * Procedure Codes:?41079 VENIP UNCT, ROUTINE* * * The named appointment provid er may or may not be the originator of this progress note, and it is not deemed complete until electronically signed by the appointment provider. Sign off status: Pending * Provider:?Chaka Mejia MD Date:?0 10/09/2024 Generated for Shawnee campuzano/Luis/Asheritting on:?10/09/2024 10:43 AM EDT
--- OUTSIDE RECORDS SUMMARY | 2024-10-09 10:44 | XMS_ITS | Patient Health Record ---
Author Organization Chaka Mejia MD Address [address] [place] [phone] Care Team Providers Care Medical Office Manager Name Role Phone Chaka Mejia Primary Care Provider Allergies Allergen (clinical drug ingredient) Drug/Non Drug Allergy documented on EMR Reaction Allergy Type Onset Date Status ibuprofen Ibuprofen throat swelling Drug Allergy A ctive aspirin Aspirin throat swelling Drug Allergy A ctive Aleve throat swelling Drug Allergy A ctive Results Component Value Reference Range Notes Liver Panel Reviewed date:11/12/2023 12:34:35 PM Interpretation: Performing Lab:[facility], [address] [place] [phone] Notes/Report: Bilirubin Total 0.7 0.0-1.0 mg/dL Bilirubin Direct 0.2 0.0-0.5 mg/dL Aspartate Amino Transferase 34 5-37 U/L Alanine Aminotransferase 57 0-40 U/L Total Protein 6.8 6.5-8.0 g/dL Albumin Level 4.5 3.5-5.0 g/dL Alkaline Phosphatase 72 39-117 U/L Lipid Panel Reviewed date:11/12/2023 12:41:38 PM Interpretation: Performing Lab:[facility], [address] [place] [phone] Notes/Report: Triglycerides 58 <150 mg/dL Desirable Triglyceride: [...] low results in patients with liver disease. Complete Blood Count Auto Di ff Reviewed date:05/13/2024 12:38:59 PM Interpretation: Performing Lab:[facility], [address] [place] [phone] Notes/Report: White Blood Count 6.8 4.8-10.8 X10*3/uL [...] NRBC Abs Auto 0.000 0.0-0.012 X10*3/uL Comprehensive [place]. Panel Fa st Reviewed date:05/12/2024 12:55:17 PM Interpretation: Performing Lab:[facility], [address] [place] [phone] Notes/Report: Sodium 141 135-145 mmol/L Potassium 4.1 [...] Panel Reviewed date:05/12/2024 12:55:42 PM Interpretation: Performing Lab:[facility], [address] [place] [phone] Notes/Report: Triglycerides 64 <150 mg/dL Desirable Triglyceride: [...] (Free>4and<10) Reviewed date:05/12/2024 12:55:24 PM Interpretation: Performing Lab:[facility], [address] [place] [phone] Notes/Report: PSA,Total (Free>4and<10) 0.64 0.00-4.00 ng/mL A [...] between 4.0 and 10.0 ng/mL. PSA methodology: Clay Alinity i Chemiluminescent Microparticle Immunoassay (CMIA) Testosterone, Free/Total Reviewed date:05/18/2024 02:18:19 PM Interpretation: Performing Lab:[facility], [address] [place] [phone] Notes/Report: Testosterone, Total 533 778-7986 ng/dL For additional information, please refer to http://education.[employer]/faq/ TotalTestosteroneLCMSMSFAQ 165 (This link is being provided for informational/ educational purposes only.) This test was developed and its analytical performance characteristics have been determined by [employer] [place], [place]. It has not been cleared or approved by the U.S. Food and Drug Administration. This assay has been validated pursuant to the CLIA regulations and is used for clinical purposes. Testosterone, Free 89.7 35.0-155.0 pg/mL This test was developed and its analytical performance characteristics have been determined by [employer] [place], [place]. It has not been cleared or approved by the U.S. Food and Drug Administration. This assay has been validated pursuant to the CLIA regulations and is used for clinical purposes. THIS TEST WAS PERFORMED AT: [facility]/[address] HARRISON NGUYEN MD,PHD Liver Panel (Not yet reviewe d by provider) Interpretation: Performing Lab:[address] [phone] Notes/Report: Bilirubin Total 1.0 0.0-1.0 mg/dL Bilirubin Direct 0.4 0.0-0.5 mg/dL Aspartate Amino Transferase 34 5-37 U/L Alanine Aminotransferase 42 0-40 U/L Total Protein 7.2 6.5-8.0 g/dL Albumin Level 4.6 3.5-5.0 g/dL Alkaline Phosphatase 70 39-117 U/L Lipid Panel (Not yet reviewe d by provider) Interpretation: Performing Lab:[address] [phone] Notes/Report: Triglycerides 67 <150 mg/dL Desirable Triglyceride: [...] Cult Reviewed date:05/12/2024 01:00:55 PM Interpretation: Performing Lab:[facility], [address] [place] [phone] Notes/Report: Urine, Clean Catch Color Urine Yellow Appearance Urine Clear PH 8.0 5.0-9.0 Glucose Urine UA Negative Negative mg/dL Urine Blood Negative Negative Specific [place] - Urine 1.020 1.005-1.025 Urine Protein Trace Neg-Trace mg/dL Urine Ketones Negative Negative mg/dL Nitrite Urine Negative Negative Leukocyte Esterase Urine Negative Negative Reason For Referral No Information Medications Medication SIG (Take, Route, Frequency, Duration) Notes Start Date End Date Status Propranolol HCl 10 MG 1 to 3 tablets Ora lly every 12 hrs for 30 days 07/25/2024 Active Cialis 20 MG 1/2 tablet Orally On ce a day 12/22/2016 Active EpiPen 2-Ravi 0.3 MG/0.3ML as directed In jection once a day for reaction for 1 dose 09/21/2016 Active Lansoprazole 30 MG TAKE 1 CAPSULE BY [facility] EVERY DAY for 90 Active Atorvastatin Calcium 20 MG TAKE 1 TABLET BY MOUTH EVERY DAY Active tiZANidine HCl 4 MG 1 tablet at bedtime as needed Orally Once a day for 30 days 05/20/2024 Active Immunizations Vaccine Route Administration Date Status Comme nts [...] At Work PPSV23 (Pnemovax) Unknown 10/09/2022 Refused Social History Tobacco Use: Social History Observation [...] Never (0 point) Points 1 Interpretation Negative Problems Problem Type SNOMED Code ICD Code Onset Dates Problem Status W/U Status Risk Notes Problem 189649364 Reflux esophagitis (K21.00) Active confirmed Problem 658769829 Erectile dysfunction, unspecified erectile dysfunction type (N52.9) Active confirmed Problem 303012322 Elevated LDL cholesterol level (E78.00) Active confirmed Problem IBS (irritable bowel syndrome) (K58.9) Active confirmed Problem 703830702 History of hay fever (Z87.09) Active confirmed Problem 735516431 History of allergy to NSAID (Z88.6) Active confirmed Vital Signs Blood pressure diastolic 64 mm Hg 07/25/2024 Height 67.50 in 07/25/2024 Blood pressure systolic 148 mm Hg 07/25/2024 Weight 161 lbs 07/25/2024 BMI 24.84 kg/m2 07/25/2024 Encounters Encounter Location Date Provider Diagnosis Chaka Mejia MD [address] [place] [id number] 11/12/2023 Chaka Mejia Elevated LDL cholesterol level E78.00 Chaka Mejia MD [address] [place] [address] Drive [address] [place] [id number] 05/12/2024 Chaka Mejia Blood tests for routine general physical examination Z00.00 ; Elevated LDL cholesterol level E78.00 and Erectile dysfunction, unspecified erectile dysfunction type N52.9 Chaka Mejia MD [address] [place] [id number] 10/09/2024 Chaka Mejia Elevated LDL cholesterol level E78.00 and Aspirin allergy Z88.8 Chaka Mejia MD [address] [place] [id number] 11/19/2023 Chaka Mejia Elevated LDL cholesterol level E78.00 and Elevated LFTs R79.89 Chaka Mejia MD [address] [place] [id number] 05/20/2024 Chaka Mejia Aspirin allergy Z88.8 ; Annual physical exam Z00.00 ; Back muscle spasm M62.830 ; Encounter for screening for malignant neoplasm of colon Z12.11 ; Encounter for screening for malignant neoplasm of rectum Z12.12 ; IBS (irritable bowel syndrome) K58.9 ; Elevated LDL cholesterol level E78.00 ; Colon cancer screening Z12.11 and Depression screening Z13.31 Chaka Mejia MD [address] [place] [id number] 07/25/2024 Chaka Mejia 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 Chaka Mejia MD [address] [place] [address] Drive [address] [place] [id number] 03/31/2024 Chaka Mejia Assessments Encounter Date Diagnosis (ICD Code) Assessment Notes Treatment Notes Treatment Clinical Notes Section Notes 11/12/2023 Elevated LDL cholesterol level (ICD-10 - E78.00) 05/12/2024 Blood tests for routine general physical examination (ICD-10 - Z00.00) 05/12/2024 Elevated LDL cholesterol level (ICD-10 - E78.00) 10/09/2024 Elevated LDL cholesterol level (ICD-10 - E78.00) 11/19/2023 Elevated LDL cholesterol level (ICD-10 - E78.00) stable, labs reviewed discussed with patient, will continue current regiment 11/19/2023 Elevated LFTs (ICD-10 - R79.89) is secondary to statins, will continue to monitor 05/20/2024 Aspirin allergy (ICD-10 - Z88.8) 05/20/2024 Annual physical exam (ICD-10 - Z00.00) labs reviewed and discussed with patient 07/25/2024 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) patient verbalized understanding of medication and directions for use 05/12/2024 Erectile dysfunction, unspecified erectile dysfunction type (ICD-10 - N52.9) 10/09/2024 Aspirin allergy (ICD-10 - Z88.8) 05/20/2024 Back muscle spasm (ICD-10 - M62.830) 05/20/2024 Encounter for screening for malignant neoplasm of colon (ICD-10 - Z12.11) Cologuard order faxed to [facility] 05/20/2024 Encounter for screening for malignant neoplasm [...] - Z13.31) negative screen Plan Of Treatment Pending Test Test Name Order Date Electrocardiogram (EKG) 06/16/2016 CT ABD & PELVIS WITH CONTRAST 10/09/2011 CT ABD & PELVIS WITH CONTRAST 10/28/2021 CT ABD & PELVIS NO CONTRAST 10/28/2021 XR CHEST 2 VIEW PA & LAT 09/25/2022 Liver Panel 10/09/2024 Lipid Panel 10/09/2024 Next Appt Details Provider Name:Chaka Adams ier, 10/14/2024 09:00:00 AM, [address] [place] [address], [address], [phone], Provider Name:Chaka Adams ier, 05/19/2025 07:15:00 AM, [address] [place] [address], [address], [phone], Provider Name:Chaka Adams ier, 05/26/2025 10:30:00 AM, [address] [place] [address], [address], [phone], Insurance Providers Payer Name Payer Address Payer Phone Subscriber Number Group Number Insured Name Patient Relationship to Insured Coverage Start Date Coverage End Date NAZ TORRES [address] MELISSA Nuñez [phone] [id number] Enrique Dawson Self - patient is the insured 6 Medical (General) History Medical History History ICD Code colonoscopy overdue
--- OUTSIDE RECORDS SUMMARY | 2024-10-09 10:44 | XMS_ITS | Clinical Summary ---
Author Organization [facility] Address [address] [place] [phone] Phone Care Team Providers Care Supervisor Painting Name Role Phone Unavailable Primary Care Provider Unavailabl e Social History Tobacco Use Types Packs/Day Years Used Date Smoking Tobacco: Never Assessed Sex and Gender Information Value Date Recorded Sex Assigned at Not on file Legal Sex Male 3:56 PM EDT Gender Identity Not on file Sexual Orientation Not on file Plan of Treatment Health Maintenance Due Date Last Done Comments MMR Vaccines (1 of 1 - Stand jay series) 08/30/1967 Varicella Vaccines (1 of 2 - 13+ 2-dose series) 08/30/1979 DTaP,Tdap,and Td Vaccines (1 - Tdap) 1984 Hepatitis B Vaccines (1 of 3 - 19+ 3-dose series) 1985 Influenza Vaccines (#1) 2024 COVID-19 Vaccine (2023-2 5 season) 2024 HIB Vaccines Aged Out No longer eligi ble based on patient's age to complete this topic HPV Vaccines Aged Out No longer eligi ble based on patient's age to complete this topic Hepatitis A Vaccines Aged Out No long er eligible based on patient's age to complete this topic IPV Vaccines Aged Out No longer eligi ble based on patient's age to complete this topic Men B Vaccine Aged Out No longer elig ible based on patient's age to complete this topic Meningococcal Vaccine Aged Out No curtis elkin eligible based on patient's age to complete this topic Pneumococcal Vaccine Aged Out No long er eligible based on patient's age to complete this topic
== END 2024-10-09 09:52 | disposition home or self-care (01) ==
LOC: HO.LNP 09:51
PROVIDERS: Visit Provider Internal Medicine
DX: Z13.6 Encounter for screening for cardiovascular disorders (principal); Z88.8 Allergy status to other drugs, medicaments and biological substances
CPT/HCPCS: 80061; 80076

== ENCOUNTER 2025-05-19 07:15 | Outpatient (REF) | payer OTHER, SELFPAY ==
--- OUTSIDE RECORDS SUMMARY | 2023-11-19 10:30 | XMS_ITS ---
Author Organization Chaka Mejia MD Address [address] [place] [phone] Care Team Providers Care Health And Safety Tech Name Role Phone Chaka Mejia Primary Care Provider Allergies Allergen (clinical drug ingredient) Drug/Non Drug Allergy documented on EMR Reaction Allergy Type Onset Date Status ibuprofen Ibuprofen throat swelling Drug Allergy A ctive aspirin Aspirin throat swelling Drug Allergy A ctive Aleve throat swelling Drug Allergy A ctive REASON FOR VISIT 6 MO F/U Medications Medication SIG (Take, Route, Frequency, Duration) Notes Start Date End Date Status Lansoprazole 30 MG TAKE [address] [place] [facility] EVERY DAY for 90 Active Cialis 20 MG 1/2 tablet Orally On ce a day 12/22/2016 Active Atorvastatin Calcium 20 MG TAKE 1 TABLET BY MOUTH EVERY DAY Active EpiPen 2-Ravi 0.3 MG/0.3ML as directed In jection once a day for reaction for 1 dose 09/21/2016 Active Vital Signs Blood pressure systolic 110 mm Hg 11/19/19 24 Blood pressure diastolic 60 mm Hg 024 Height 67.50 in 11/19/2023 Weight 154 lbs 11/19/2023 BMI 23.76 kg/m2 11/19/2023 Encounters Encounter Location Date Provider Diagnosis Chaka Mejia MD [address] [place] [address] [place] [phone] 11/19/2023 Chaka Mejia Elevated LDL cholesterol level E78.00 and Elevated LFTs R79.89 Assessments Encounter Date Diagnosis (ICD Code) Assessment Notes Treatment Notes Treatment Clinical Notes Section Notes 11/19/2023 Elevated LDL cholesterol level (ICD-10 - E78.00) stable, labs reviewed discussed with patient, will continue current regiment 11/19/2023 Elevated LFTs (ICD-10 - R79.89) is secondary to statins, will continue to monitor Plan Of Treatment Medication Medication Name Sig Start Date Stop Date Notes Atorvastatin Calcium 20 MG TAKE 1 TABLET BY MOUTH EVERY DAY Treatment Notes Assessment Notes Elevated LDL cholesterol level stable, l abs reviewed discussed with patient, will continue current regiment Elevated LFTs is secondary to stat ins, will continue to monitor Next Appt Details Provider Name:Chaka Adams ier, 05/26/2025 10:30:00 AM, [address] [place] [address], Suite [facility], [place], [place], [phone], Progress Notes * EUNICE, DakotaOB:1965 (58 yo M)Acc No.[id number]:11/19/2023 Progress Notes Patient: Enrique Siddiqi Provider: Amrit Mejia MD :1965 A ge:58 Y S ex:Male Date:11/19/2023 Address:[address] [place] [address] stephanie [id number] Subjective: * Chief Complaints: * 6 MO F/U * HPI: S ymptom(s): patient is a 58 yo male here for 6 month follow up visit. * ROS: G eneral/Constitutional: Denies C hills. D enies F atjennifere. D enies F ever. D enies H eadache. E NT: Patient denies d ecreased sense of smell , any loss of taste , sore throat. D enies S ore throat. R espiratory: Denies C ough. D enies S hortness of breath at rest. D enies S hortness of breath with exertion. G astrointestinal: Denies D iarrhea. D enies N ausea. M usculoskeletal: Patient denies m uscle aches. P eripheral Vascular: Patient denies r ed and blue toes. * Medical History: * Surgical History: * Hospitalization/Major Diagno stic Procedure: * Medications: T akingEpiPen 2-Ravi 0.3 MG/0.3ML Solution Auto-injector as directed Injection once a day for reactionCialis 20 MG Tablet 1/2 tablet Orally Once a dayAtorvastatin Calcium 20 MG Tablet TAKE 1 TABLET BY MOUTH EVERY DAY Lansoprazole 30 MG Capsule Delayed Release TAKE 1 CAPSULE BY MOUTH EVERY DAY Medication List reviewed and reconciled with the patientTaking EpiPen 2-Ravi 0.3 MG/0.3ML Solution Auto-injector as directed Injection once a day for reactionTaking Cialis 20 MG Tablet 1/2 tablet Orally Once a dayTaking Atorvastatin Calcium 20 MG Tablet TAKE 1 TABLET BY MOUTH EVERY DAY Taking Lansoprazole 30 MG Capsule Delayed Release TAKE 1 CAPSULE BY MOUTH EVERY DAY Medication List reviewed and reconciled with the patient * Allergies: A spirin: throat swellingIbuprofen: throat swellingAleve: throat swellingyes[Allergies Verified] Objective: * Vitals: H t: 67.50, Wt:154, BMI:23.76, BP:110/60. * P ast Orders: L ab:Liver Panel (Order Date - 11/12/2023) (Collection Date - 11/12/2023) Value Reference Range Bilirubin Total 0.7 0.0-1.0 - mg/dL Bilirubin Direct 0.2 0.0-0.5 - mg/dL Aspartate Amino Transferase 34 5-37 - U/L Alanine Aminotransferase 57 H 0-40 - U/L Total Protein 6.8 6.5-8.0 - g/dL Albumin Level 4.5 3.5-5.0 - g/dL Alkaline Phosphatase 72 39-117 - U/L L ab:Lipid Panel (Order Date - 11/12/2023) (Collection Date - 11/12/2023) Value Reference Range Triglycerides 58 <150 - mg/dL Cholesterol 152 <200 - mg/dL LDL Cholesterol Calculated 73 <100 - mg/dL HDL Cholesterol 68 >40 - mg/dL * Examination: G eneral Examination: GENERAL APPEARANCE: alert, well hydrated, in no distress . HEAD: normocephalic. SKIN: good turgor. HEART: regular rate and rhythm, no murmurs, rubs, gallops. LUNGS: no wheezes, rales, rhonchi, good air movement, clear to auscultation bilaterally. ABDOMEN: no hepatosplenomegaly, has a small midline hernia. Assessment: * Assessment: 1. E levated LDL cholesterol level - E78.00 (Primary) 2 . E levated LFTs - R79.89 Plan: * Treatment: 2. E levated LFTs Notes: is secondary to statins, will continue to monitor. * Procedure Codes: * * Sign off status: Completed true * Provider: Amrit Mejia MD Date: 0 11/19/2023 Generated for Shawnee campuzano/Luis/eTransmitting on: 1 07/20/2024 01:32 PM EST History and Physical Notes * HPI (History of Present Illness) Category Sub-Category Detail Notes Category Not es Symptom(s) patient is a 58 yo male here for 6 month follow up visit Examination Category Sub-Category Detail Notes Category Not es General Examination GENERAL APPEARANCE: alert, w ell hydrated, in no distress HEAD: normocephalic HEART: regular rate and rhy thm, no murmurs, rubs, gallops LUNGS: no wheezes, rales, r honchi, good air movement, clear to auscultation bilaterally ABDOMEN: no hepatosplenomegal y, has a small midline hernia SKIN: good turgor
--- OUTSIDE RECORDS SUMMARY | 2024-03-31 09:27 | XMS_ITS ---
Author Organization Chaka Mejia MD Address [address] [place] [phone] Care Team Providers Care Title Abstractor Name Role Phone Chaka Mejia Primary Care Provider REASON FOR VISIT Enrique Dawson - Yearly Bloodwork 05/12/2024 Encounters Encounter Location Date Provider Diagnosis Chaka Mejia MD [address] [place], [place] [phone] 03/31/2024 Chaka Mejia Plan Of Treatment Next Appt Details Provider Name:Chaka carbajal, 05/26/2025 10:30:00 AM, [address], Suite [facility], [place], [place], [phone], Progress Notes * Dakota DAWSONOB:1965 (58 yo M)Acc No.[id number]:03/31/2024 Patient: Enrique Siddiqi :1965 A ge:58 Y S ex:Male Address:[address] [place] [address] [place] [address] * true * Date: Generated for Shawnee campuzano/Luis/Kayleysmitting on: 07/20/2024 01:32 PM EST
--- OUTSIDE RECORDS SUMMARY | 2024-05-12 02:00 | XMS_ITS ---
Author Organization Chaka Mejia MD Address [address] [place] [phone] Care Team Providers Care Data Integrity Specialist Name Role Phone Chaka Mejia Primary Care Provider Results Component Value Reference Range Notes Complete Blood Count Auto Di ff Reviewed date:05/13/2024 12:38:59 PM Interpretation: Performing Lab:[facility], [address] [place] [phone] Notes/Report: White Blood Count 6.8 4.8-10.8 X10*3/uL Red Blood Count 5.25 4.60-5.80 X10*6/uL Hemoglobin 15.9 14.0-18.0 g/dl Hematocrit 47.2 42.0-52.0 % Mean Corpuscular Volume 89.9 80.0-98.0 fL Mean Corpuscular Hemoglobin 30.3 27.0-33.0 pg Mean Corpuscular HGB Conc 33.7 31.0-36.0 g/dl Red Cell Distribution Width 12.3 11.0-16.0 % Platelet Count 291 160-400 X10*3/uL Mean Platelet Volume 9.5 9.4-12.4 fL Neutrophils Percent Auto 51.4 45-73 % Imm Gran Pct Auto 0.3 0.0-0.4 % Lymphocytes Percent Auto 32.5 20-40 % Monocytes Percent Auto 10.7 2-11 % Eosinophils Percent Auto 4.4 0-4 % Basophils Percent Auto 0.7 0-2 % NRBC Pct Auto 0.0 0.0-0.2 /100WBC Neutrophils Absolute Auto 3.5 2.0-8.3 x10*3/u L Imm Gran Abs Auto 0.02 0.00-0.03 X10*3/uL Lymphocytes Absolute Auto 2.2 1.2-4.9 X10*3/u L Monocytes Absolute Auto 0.7 0.1-1.2 X10*3/uL Eosinophils Absolute Auto 0.3 0.0-0.4 X10*3/u L Basophils Absolute Auto 0.1 0.0-0.2 X10*3/uL NRBC Abs Auto 0.000 0.0-0.012 X10*3/uL Comprehensive [place]. Panel Fa st Reviewed date:05/12/2024 12:55:17 PM Interpretation: Performing Lab:[facility], [address] [place] [phone] Notes/Report: Sodium 141 135-145 mmol/L Potassium 4.1 3.3-5.1 mmol/L Chloride 103 96-108 mmol/L Carbon Dioxide 29 22-29 mmol/L Anion Gap 13 12-20 Blood Urea Nitrogen 14 9-16 mg/dL Creatinine 0.87 0.5-1.4 mg/dL Estimated Glomerular Filt Rate > 60 Chronic Kidney Disease: Estimated GFR < 60 mL/min/1.73m2 Severe Kidney Disease: Estimated GFR < 15 mL/min/1.73m2 Glucose Fasting 106 60-99 mg/dL A fasting glucose from 100-125 mg/dl is considered impaired (pre-diabetes). Calcium 9.7 8.4-10.2 mg/dL Bilirubin Total 1.0 0.0-1.0 mg/dL Aspartate Amino Transferase 43 5-37 U/L Alanine Aminotransferase 51 0-40 U/L Total Protein 7.1 6.5-8.0 g/dL Albumin Level 4.6 3.5-5.0 g/dL Alkaline Phosphatase 69 39-117 U/L Lipid Panel Reviewed date:05/12/2024 12:55:42 PM Interpretation: Performing Lab:[address] [phone] Notes/Report: Triglycerides 64 <150 mg/dL Desirable Triglyceride: less than 150 mg/dL Borderline High Triglyceride 150-199 mg/dL High Triglyceride: 200-499 mg/dL Very High Triglyceride: greater than or equal to 5OO mg/dL Cholesterol 171 <200 mg/dL Desirable Cholesterol: less than 200 mg/dL Borderline High Cholesterol: 200-239 mg/dL High Cholesterol: greater than 239 mg/dL LDL Cholesterol Calculated 88 <100 mg/dL Desirable LDL: less than 100 mg/dL Near Optimal/Above Optimal LDL: 110-129 mg/dL Borderline High LDL: 130-159 mg/dL High LDL: 160-189 mg/dL Very High LDL: greater than or equal to 190 mg/dL HDL Cholesterol 71 >40 mg/dL Desirable HDL: greater than 40 mg/dL Note: This HDL assay may give artificially low results in patients with liver disease. PSA,Total (Free>4and<10) Reviewed date:05/12/2024 12:55:24 PM Interpretation: Performing Lab:[address] [phone] Notes/Report: PSA,Total (Free>4and<10) 0.64 0.00-4.00 ng/mL A Free PSA was not performed: The percentage of Free PSA can be used to enhance the differentiation of prostate cancer from benign prostatic disease in subjects whose PSA levels are between 4.0 and 10.0 ng/mL. For subjects whose PSA levels are below 4.0 or above 10.0 ng/mL, the risk of prostate cancer is determined on the basis of the PSA alone. Therefore the % Free PSA is recommended only for those subjects whose PSA levels are between 4.0 and 10.0 ng/mL. PSA methodology: [employer] Chemiluminescent Microparticle Immunoassay (CMIA) Testosterone, Free/Total Reviewed date:05/18/2024 02:18:19 PM Interpretation: Performing Lab:[facility], [address] [facility], [place] [address] Notes/Report: Testosterone, Total 677 194-0104 ng/dL For additional information, please refer to http://education.Welocalize.Bitbrains/faq/ [email or web address] 5 (This link is being provided for informational/ educational purposes only.) This test was developed and its analytical performance characteristics have been determined by [facility] [place], [place]. It has not been cleared or approved by the U.S. Food and Drug Administration. This assay has been validated pursuant to the CLIA regulations and is used for clinical purposes. Testosterone, Free 89.7 35.0-155.0 pg/mL This test was developed and its analytical performance characteristics have been determined by [facility] [place], [place]. It has not been cleared or approved by the U.S. Food and Drug Administration. This assay has been validated pursuant to the CLIA regulations and is used for clinical purposes. THIS TEST WAS PERFORMED AT: [employer] [address] [phone] HARRISON NGUYEN MD,PHD REASON FOR VISIT FASTING LABS with testosterone per pt request Medications Medication SIG (Take, Route, Frequency, Duration) Notes Start Date End Date Status Lansoprazole 30 MG TAKE 1 CAPSULE BY [facility] EVERY DAY for 90 Active Atorvastatin Calcium 20 MG TAKE 1 TABLET BY MOUTH EVERY DAY Active Cialis 20 MG 1/2 tablet Orally On day 12/22/2016 Active EpiPen 2-Ravi 0.3 MG/0.3ML as directed In jection once a day for reaction for 1 dose 09/21/2016 Active Encounters Encounter Location Date Provider Diagnosis Chaka Mejia MD [address] [place], [place] [phone] 05/12/2024 Chaka Mejia Blood tests for routine general physical examination Z00.00 ; Elevated LDL cholesterol level E78.00 and Erectile dysfunction, unspecified erectile dysfunction type N52.9 Assessments Encounter Date Diagnosis (ICD Code) Assessment Notes Treatment Notes Treatment Clinical Notes Section Notes 05/12/2024 Blood tests for routine general physical examination (ICD-10 - Z00.00) 05/12/2024 Elevated LDL cholesterol level (ICD-10 - E78.00) 05/12/2024 Erectile dysfunction, unspecified erectile dysfunction type (ICD-10 - N52.9) Plan Of Treatment Next Appt Details Provider Name:Chaka Adams ier, 05/26/2025 10:30:00 AM, [address] [facility], [address], [place], [place], [phone], Progress Notes * Don DAWSONGarrickOB:1965 (59 yo M)Acc No.[id number]:05/12/2024 Progress Note Patient: Enrique WANG Provider: Amrit Mejia MD :1965 A ge:58 Y S ex:Male Date:05/12/2024 Address:[address] [place], [place] [phone] Subjective: * Chief Complaints: * 1 . FASTING LABS with testosterone per pt request. * Medical History: * Medications: T aking EpiPen 2-Ravi 0.3 MG/0.3ML Solution Auto-injector as directed Injection once a day for reaction , Taking Cialis 20 MG Tablet 1/2 tablet Orally Once a day , Taking Atorvastatin Calcium 20 MG Tablet TAKE 1 TABLET BY MOUTH EVERY DAY , Taking Lansoprazole 30 MG Capsule Delayed Release TAKE 1 CAPSULE BY MOUTH EVERY DAY Objective: * Vitals: Assessment: * Assessment: 1. B lood tests for routine general physical examination - Z00.00 (Primary) 2 .?Elevated LDL cholesterol level - E78.00 3 . E rectile dysfunction, unspecified erectile dysfunction type - N52.9 Plan: * Treatment: 2. E levated LDL cholesterol level L AB: UA ClnCatch+Micro w/rflx Cult (Order Cancelled) L AB: Complete Blood Count Auto Diff (Collection Date & Time - 05/12/2024 07:00 AM) L AB: Comprehensive [place]. Panel Fast (Collection Date & Time - 05/12/2024 07:00 AM) L AB: Lipid Panel (Collection Date & Time - 05/12/2024 07:00 AM) L AB: PSA,Total (Free>4and<10) (Collection Date & Time - 05/12/2024 07:00 AM) 3. E rectile dysfunction, unspecified erectile dysfunction type L AB: Testosterone, Free/Total (Collection Date & Time - 05/12/2024 07:00 AM) * Procedure Codes: 3 6415 VENIPUNCT, ROUTINE* * * The named appointment provid er may or may not be the originator of this progress note, and it is not deemed complete until electronically signed by the appointment provider. Sign off status: Pending * Provider: Amrit Mejia MD Date: 07/13/2023 Generated for Shawnee campuzano/Luis/Kayleysmitting on: 07/20/2024 01:32 PM EST
--- OUTSIDE RECORDS SUMMARY | 2024-05-20 04:30 | XMS_ITS ---
Author Organization Chaka Mejia MD Address [address] [place] [phone] Care Team Providers Care Millwright Supervisor Name Role Phone Chaka Mejia Primary Care Provider Allergies Allergen (clinical drug ingredient) Drug/Non Drug Allergy documented on EMR Reaction Allergy Type Onset Date Status ibuprofen Ibuprofen throat swelling Drug Allergy A ctive aspirin Aspirin throat swelling Drug Allergy A ctive Aleve throat swelling Drug Allergy A ctive REASON FOR VISIT Annual Medications Medication SIG (Take, Route, Frequency, Duration) Notes Start Date End Date Status Lansoprazole 30 MG TAKE 1 CAPSULE BY [facility] EVERY DAY for 90 Active EpiPen 2-Ravi 0.3 MG/0.3ML as directed In jection once a day for reaction for 1 dose 09/21/2016 Active Cialis 20 MG 1/2 tablet Orally On ce a day 12/22/2016 Active tiZANidine HCl 4 MG 1 tablet at bedtime as needed Orally Once a day for 30 days 05/20/2024 Active Atorvastatin Calcium 20 MG TAKE 1 TABLET BY MOUTH EVERY DAY Active Social History Tobacco Use: Social History Observation Description Date Details (start date - stop date) Never Smoker NA - NA Tobacco Use/Smoking Question Answer Notes Patient is a nonsmoker Additional Findings: Tobacco Non-User Cu rrent non-smoker, currently using no form of tobacco Alcohol Screen Question Answer Notes Did you have a drink contain ing alcohol in the past year? Yes How often did you have a dri nk containing alcohol in the past year? Monthly or less (1 point) How many drinks did you have on a typical day when you were drinking in the past year? 1 or 2 drinks (0 point) How often did you have 6 or more drinks on one occasion in the past year? Never (0 point) Points 1 Interpretation Negative Vital Signs Blood pressure systolic 122 mm Hg 05/20/20 24 Blood pressure diastolic 80 mm Hg 024 Height 67.50 in 05/20/2024 Weight 159 lbs 05/20/2024 BMI 24.53 kg/m2 05/20/2024 weight is up 5 pounds since 11-19-23 Encounters Encounter Location Date Provider Diagnosis Chaka Mejia MD [address] [place] [address] [place] [phone] 05/20/2024 Chaka Mejia Aspirin allergy Z88.8 ; Annual physical exam Z00.00 ; Back muscle spasm M62.830 ; Encounter for screening for malignant neoplasm of colon Z12.11 ; Encounter for screening for malignant neoplasm of rectum Z12.12 ; IBS (irritable bowel syndrome) K58.9 ; Elevated LDL cholesterol level E78.00 ; Colon cancer screening Z12.11 and Depression screening Z13.31 Assessments Encounter Date Diagnosis (ICD Code) Assessment Notes Treatment Notes Treatment Clinical Notes Section Notes 05/20/2024 Aspirin allergy (ICD-10 - Z88.8) 05/20/2024 Annual physical exam (ICD-10 - Z00.00) labs reviewed and discussed with patient 05/20/2024 Back muscle spasm (ICD-10 - M62.830) 05/20/2024 Encounter for screening for malignant neoplasm of colon (ICD-10 - Z12.11) Cologuard order faxed to [facility] 05/20/2024 Encounter for screening for malignant neoplasm of rectum (ICD-10 - Z12.12) 05/20/2024 IBS (irritable bowel syndrome) (ICD-10 - K58.9) doing well off coffee 05/20/2024 Elevated LDL cholesterol level (ICD-10 - E78.00) on statins doing a little elevation, will continue current regiment and will contnue to monitor 05/20/2024 Colon cancer screening (ICD-10 - Z12.11) guaiac negative 05/20/2024 Depression screening (ICD-10 - Z13.31) negative screen Plan Of Treatment Medication Medication Name Sig Start Date Stop Date Notes EpiPen 2-Ravi 0.3 MG/0.3ML as directed In jection once a day for reaction for 1 dose 09/21/2016 tiZANidine HCl 4 MG 1 tablet at bedtime as needed Orally Once a day for 30 days 05/20/2024 Atorvastatin Calcium 20 MG TAKE 1 TABLET BY MOUTH EVERY DAY Treatment Notes Assessment Notes Annual physical exam labs reviewed and d iscussed with patient Encounter for screening for malignant neoplasm of colon Cologuard order faxed to [facility] IBS (irritable bowel syndrome) doing wel l off coffee Elevated LDL cholesterol level on statin s doing a little elevation, will continue current regiment and will contnue to monitor Colon cancer screening guaiac negative Depression screening negative screen Next Appt Details Follow Up: 6 Months, Reason: Provider Name:Chaka stapletonr, 05/26/2025 10:30:00 AM, [address] [place] [address], [address], [place], [place], [phone], Progress Notes * Dakota DAWSONOB:1965 (58 yo M)Acc No.[id number]:05/20/2024 Progress Notes Patient: Enrique Siddiqi Provider: Amrit Mejia MD :1965 A ge:58 Y S ex:Male Date:05/20/2024 Address:[address] [place], [place] [id number] Subjective: * Chief Complaints: * A nnual * HPI: D epression Screening: PHQ-9 L ittle interest or pleasure in doing things N ot at all, F eeling down, depressed, or hopeless N ot at all, T rouble falling or staying asleep, or sleeping too much N ot at all, F eeling tired or having little energy N ot at all, P oor appetite or overeating N ot at all, F eeling bad about yourself or that you are a failure, or have let yourself or your family down N ot at all, T rouble concentrating on things, such as reading the newspaper or watching television N ot at all, M oving or speaking so slowly that other people could have noticed; or the opposite, being so fidgety or restless that you have been moving around a lot more than usual N ot at all, T houghts that you would be better off or of hurting yourself in some way N ot at all, T otal Score 0 . I nterpretation and Intervention D epression Screening Findings N egative, F ollow-Up for Depression : review of PHQ-9 found negative result, no follow-up needed. C ommunication Needs: Communication Needs D oes the patient have a hearing impairment N o, D oes the patient have a vision impairment? N o, D oes the patient have a cognition impairment? N o. S RAHEEL Questions: SDOH Questions I n the past year have you been worried about losing housing? N o, I n the past year have you or any family members you live with been unable to get any of the following when it was really needed? Check all that apply: N one. S ymptom(s): patient is a 58 yo male here for annual visit with review of recent labs and follow up of chronic issues. * ROS: G eneral/Constitutional: Patient denies f atigue , headache. C hange in appetite?denies. C hills d enies. F ever d enies. O phthalmologic: Blurred vision d enies. D ischarge d enies. P ain d enies. E NT: Patient denies d ecreased sense of smell , any loss of taste , sore throat. D ecreased hearing d enies. S ore throat d enies. S wollen glands d enies. E ndocrine: Cold intolerance d enies. E xcessive thirst d enies. H eat intolerance d enies. W eight loss d enies. R espiratory: Cough d enies. S hortness of breath at rest d enies. S hortness of breath with exertion d enies. W heezing d enies. C ardiovascular: Chest pain at rest d enies. C hest pain with exertion?denies. I rregular heartbeat d enies. S hortness of breath d enies. ? G astrointestinal: Abdominal pain d enies. C hange in bowel habits d enies. D iarrhea d enies. N ausea d enies. R ectal bleeding d enies. V omiting d enies . G enitourinary: Blood in urine d enies. D ifficulty urinating d enies. F requent urination d enies. M usculoskeletal: Patient denies m uscle aches. P ainful joints d enies. W eakness d enies. P eripheral Vascular: Patient denies r ed and blue toes. S kin: Dry skin d enies. I tching d enies. D enies?Mole(s), changes in moles, new moles or any lesions of concern. D enies P hotosensitivity. R brissa d enies. N eurologic: Dizziness d enies. F ainting d enies. H eadache?denies. * Medical History: * Surgical History: * Hospitalization/Major Diagno stic Procedure: * Family History: F ather: alive 74 yrs. M other: 72 yrs. 1 son(s) , 1 daughter(s) . . Father-Healthy Mother- Healthy, Denies mental health/substance abuse family history, No pertinent family medical history, Denies mental health/substance abuse family history, Denies mental health/substance abuse family history, Denies mental health/substance abuse family history. * Social History: T obacco Use: T obacco Use/Smoking P atient is a n onsmoker, A dditional Findings: Tobacco Non-User C urrent non-smoker, currently using no form of tobacco. D rugs/Alcohol: A lcohol Screen D id you have a drink containing alcohol in the past year? Y es, H ow often did you have a drink containing alcohol in the past year? M onthly or less (1 point), H ow many drinks did you have on a typical day when you were drinking in the past year? 1 or 2 drinks (0 point), H ow often did you have 6 or more drinks on one occasion in the past year? N ever (0 point), P oints 1 , I nterpretation N egative. M iscellaneous: C affeine: yes, frequency:, 1-2 cups per day. Children: yes. Exercise: yes, weights 4 times a week. Home smoke detector use: yes. Housing: owning. Living with: spouse. Occupation: weeks/months/years, works full-time. Pets: none. no Travel outside of the [place]. * Medications: T akingEpiPen 2-Ravi 0.3 MG/0.3ML [...] Verified] Objective: * Vitals: H t: 67.50, Wt:159, BMI:24.53, BP:122/80 weight is up 5 pounds since 11-19-23. * P ast Orders: L ab:Comprehensive [place]. Panel Fast (Order Date - 05/12/2024) (Collection Date - 05/12/2024) Value Reference Range Sodium 141 135-145 - mmol/L Bilirubin Total 1.0 0.0-1.0 - mg/dL Aspartate Amino Transferase 43 H 5-37 - U/L Alanine Aminotransferase 51 H 0-40 - U/L Total Protein 7.1 6.5-8.0 - g/dL Albumin Level 4.6 3.5-5.0 - g/dL Alkaline Phosphatase 69 39-117 - U/L Potassium 4.1 3.3-5.1 - mmol/L Chloride 103 96-108 - mmol/L Carbon Dioxide 29 22-29 - mmol/L Anion Gap 13 12-20 - Blood Urea Nitrogen 14 9-16 - mg/dL Creatinine 0.87 0.5-1.4 - mg/dL Estimated Glomerular Filt Rate > 60 - Glucose Fasting 106 H 60-99 - mg/dL Calcium 9.7 8.4-10.2 - mg/dL L ab:UA CC w/rflx Micro + Cult (Order Date - 05/12/2024) (Collection Date - 05/12/2024) Value Reference Range Color Urine Yellow - Appearance Urine Clear - PH 8.0 5.0-9.0 - Glucose Urine UA Negative Negative - mg/dL Urine Blood Negative Negative - Specific [place] - Urine 1.020 1.005-1.025 - Urine Protein Trace Neg-Trace - mg/dL Urine Ketones Negative Negative - mg/dL Nitrite Urine Negative Negative - Leukocyte Esterase Urine Negative Negative - L ab:PSA,Total (Free>4and<10) (Order Date - 05/12/2024) (Collection Date - 05/12/2024) Value Reference Range PSA,Total (Free>4and<10) 0.64 0.00-4.00 - ng/ mL L ab:Lipid Panel (Order Date - 05/12/2024) (Collection Date - 05/12/2024) Value Reference Range Triglycerides 64 <150 - mg/dL Cholesterol 171 <200 - mg/dL LDL Cholesterol Calculated 88 <100 - mg/dL HDL Cholesterol 71 >40 - mg/dL L ab:Complete Blood Count Auto Diff (Order Date - 05/12/2024) (Collection Date - 05/12/2024) Value Reference Range White Blood Count 6.8 4.8-10.8 - X10*3/uL Red Blood Count 5.25 4.60-5.80 - X10*6/uL Hemoglobin 15.9 14.0-18.0 - g/dl Hematocrit 47.2 42.0-52.0 - % Mean Corpuscular Volume 89.9 80.0-98.0 - fL Mean Corpuscular Hemoglobin 30.3 27.0-33.0 - pg Mean Corpuscular HGB Conc 33.7 31.0-36.0 - g/ dl Red Cell Distribution Width 12.3 11.0-16.0 - % Platelet Count 291 160-400 - X10*3/uL Mean Platelet Volume 9.5 9.4-12.4 - fL Neutrophils Percent Auto 51.4 45-73 - % Imm Gran Pct Auto 0.3 0.0-0.4 - % Lymphocytes Percent Auto 32.5 20-40 - % Monocytes Percent Auto 10.7 2-11 - % Eosinophils Percent Auto 4.4 H 0-4 - % Basophils Percent Auto 0.7 0-2 - % NRBC Pct Auto 0.0 0.0-0.2 - /100WBC Neutrophils Absolute Auto 3.5 2.0-8.3 - x10* 3/uL Imm Gran Abs Auto 0.02 0.00-0.03 - X10*3/uL Lymphocytes Absolute Auto 2.2 1.2-4.9 - X10* 3/uL Monocytes Absolute Auto 0.7 0.1-1.2 - X10*3/ uL Eosinophils Absolute Auto 0.3 0.0-0.4 - X10* 3/uL Basophils Absolute Auto 0.1 0.0-0.2 - X10*3/ uL NRBC Abs Auto 0.000 0.0-0.012 - X10*3/uL L ab:Testosterone, Free/Total (Order Date - 05/12/2024) (Collection Date - 05/12/2024) Value Reference Range Testosterone, Total [phone] - ng/dL Testosterone, Free 89.7 35.0-155.0 - pg/mL * Examination: G eneral Examination: GENERAL APPEARANCE: w ell developed, well nourished, in no acute distress. HEAD: n ormocephalic, atraumatic. EYES: p upils equal, round, reactive to light and accommodation, sclera non-icteric. EARS: n ormal. ORAL CAVITY: m ucosa moist. THROAT: c lear. NECK/THYROID: n johan supple, full range of motion, no cervical lymphadenopathy, no bruits. SKIN: w arm and dry, no suspicious lesions. HEART: r egular rate and rhythm, S1, S2 normal, no murmurs.? LUNGS: c lear to auscultation bilaterally. ABDOMEN: s oft, nontender, nondistended, bowel sounds present, normal, no organomegaly , no masses palpable. RECTAL EXAM: n ormal tone, no external hemorrhoids, no masses palpable, prostate normal, stool guaiac negative. MALE GENITOURINARY: c ircumcised , no testicular mass , testes descended bilaterally. EXTREMITIES: n o clubbing, cyanosis, or edema. NEUROLOGIC: n onfocal, motor strength normal upper and lower extremities, sensory exam intact. Assessment: * Assessment: 1. A nnual physical exam - Z00.00 (Primary) 2 . A spirin allergy - Z88.8 3 . B ack muscle spasm - M62.830 4 . E ncounter for screening for malignant neoplasm of colon - Z12.11 5 . E ncounter for screening for malignant neoplasm of rectum - Z12.12 6 . I BS (irritable bowel syndrome) - K58.9 7 . E levated LDL cholesterol level - E78.00 8 .?Colon cancer screening - Z12.11 9 . D epression screening - Z13.31 Plan: * Treatment: 2. A spirin allergy Refill EpiPen 2-Ravi Solution Auto-injector, 0.3 MG/0.3ML, as directed, Injection, once a day for reaction, 1 dose, 2, Refills 4. L AB: Liver Panel (Ordered for 11/18/2024) L AB: Lipid Panel (Ordered for 11/18/2024) 3. B ack muscle spasm Start tiZANidine HCl Tablet, 4 MG, 1 tablet at bedtime as needed, Orally, Once a day, 30 days, 20, Refills 1. 4. E ncounter for screening for malignant neoplasm of colon L AB: COLOGUARD Notes: Cologuard order faxed to [facility] 5. E ncounter for screening for malignant neoplasm of rectum L AB: COLOGUARD 6. I BS (irritable bowel syndrome) Notes: doing well off coffee 7. E levated LDL cholesterol level Continue Atorvastatin Calcium Tablet, 20 MG, TAKE 1 TABLET BY MOUTH EVERY DAY. Notes: on statins doing a little elevation, will continue current regiment and will contnue to monitor 8. C olon cancer screening Notes: guaiac negative 9. D epression screening Notes: negative screen * Procedure Codes: * Follow Up: 6 Months * * Sign off status: Completed true * Provider: Amrit Mejia MD Date: 07/21/2023 Generated for Shawnee campuzano/Luis/Talibransmitting on: 07/20/2024 01:31 PM EST History and Physical Notes * HPI (History of Present Illness) Category Sub-Category Detail Notes Category Not es Symptom(s) patient is a 58 yo male here for annual visit with review of recent labs and follow up of chronic issues. Depression Screening PHQ-9 Little inte rest or pleasure in doing things: Not at all Feeling down, depressed, or hopeless: No t at all Trouble falling or staying asleep, or sl eeping too much: Not at all Feeling tired or having little energy: N ot at all Poor appetite or overeating: Not at all Feeling bad about yourself o r that you are a failure, or have let yourself or your family down: Not at all Trouble concentrating on thi ngs, such as reading the newspaper or watching television: Not at all Moving or speaking so slowly that other people could have noticed; or the opposite, being so fidgety or restless that you have been moving around a lot more than usual: Not at all Thoughts that you would be b steven off or of hurting yourself in some way: Not at all Total Score: 0 Interpretation and Intervention Depression Bharath ochoa Findings: Negative Follow-Up for Depression: : review of PH Q-9 found negative result, no follow-up needed SDOH Questions SDOH Questions In the past year have you been worried about losing housing?: No In the past year have you or any family members you live with been unable to get any of the following when it was really needed? Check all that apply:: None Communication Needs Communication Needs Does the patient have a hearing impairment: No Does the patient have a vision impairmen t?: No Does the patient have a cognition impair ment?: No Examination Category Sub-Category Detail Notes Category Not es General Examination GENERAL APPEARANCE: well dev eloped, well nourished, in no acute distress HEAD: normocephalic, atrau matic EYES: pupils equal, round, reactive to light and accommodation, sclera non-icteric EARS: normal THROAT: clear NECK/THYROID: neck supple, full ra nge of motion, no cervical lymphadenopathy, no bruits HEART: regular rate and rhy thm, S1, S2 normal, no murmurs LUNGS: clear to auscultatio n bilaterally ABDOMEN: soft, nontender, non distended, bowel sounds present, normal, no organomegaly , no masses palpable NEUROLOGIC: nonfocal, motor stre ngth normal upper and lower extremities, sensory exam intact SKIN: warm and dry, no mitali picious lesions EXTREMITIES: no clubbing, cyanosi s, or edema MALE GENITOURINARY: circumcised , no rell ticular mass , testes descended bilaterally RECTAL EXAM: normal tone, no exte rnal hemorrhoids, no masses palpable, prostate normal, stool guaiac negative ORAL CAVITY: mucosa moist
--- OUTSIDE RECORDS SUMMARY | 2024-07-25 09:45 | XMS_ITS ---
Author Organization Chaka Mejia MD Address [address] [place] [phone] Care Team Providers Care Indirect Sales Representative Name Role Phone Chaka Mejia Primary Care Provider Allergies Allergen (clinical drug ingredient) Drug/Non Drug Allergy documented on EMR Reaction Allergy Type Onset Date Status ibuprofen Ibuprofen throat swelling Drug Allergy A ctive aspirin Aspirin throat swelling Drug Allergy A ctive Aleve throat swelling Drug Allergy A ctive REASON FOR VISIT Discuss anxiety Medications Medication SIG (Take, Route, Frequency, Duration) Notes Start Date End Date Status Cialis 20 MG 1/2 tablet Orally On ce a day 12/22/2016 Active EpiPen 2-Ravi 0.3 MG/0.3ML as directed In jection once a day for reaction for 1 dose 09/21/2016 Active Lansoprazole 30 MG TAKE 1 CAPSULE BY [facility] EVERY DAY for 90 Active Atorvastatin Calcium 20 MG TAKE 1 TABLET BY MOUTH EVERY DAY Active tiZANidine HCl 4 MG 1 tablet at bedtime as needed Orally Once a day for 30 days 05/20/2024 Active Propranolol HCl 10 MG 1 to 3 tablets Ora lly every 12 hrs for 30 days 07/25/2024 Active Vital Signs Blood pressure systolic 148 mm Hg 07/25/19 25 Blood pressure diastolic 64 mm Hg 025 Height 67.50 in 07/25/2024 Weight 161 lbs 07/25/2024 BMI 24.84 kg/m2 07/25/2024 Encounters Encounter Location Date Provider Diagnosis Chaka Mejia MD [address] [place] [address] [place] [phone] 07/25/2024 Chaka Mejia 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 Assessments Encounter Date Diagnosis (ICD Code) Assessment Notes Treatment Notes Treatment Clinical Notes Section Notes 07/25/2024 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) patient verbalized understanding of medication and directions for use Plan Of Treatment Medication Medication Name Sig Start Date Stop Date Notes Propranolol HCl 10 MG 1 to 3 tablets Ora lly every 12 hrs for 30 days 07/25/2024 Treatment Notes Assessment Notes Social phobia involving fear of public speaking patient verbalized understanding of medication and directions for use Next Appt Details Provider Name:Chaka Adams ier, 05/26/2025 10:30:00 AM, [address] [place] [address], Suite [facility], [place], [place], [phone], Progress Notes * Dakota DAWSONOB:1965 (58 yo M)Acc No.[id number]:07/25/2024 Progress Notes Patient: Enrique WANG Provider: Amrit Mejia MD :1965 A ge:58 Y S ex:Male Date:07/25/2024 Address:[address] [place] [address] [id number] Subjective: * Chief Complaints: * D iscuss anxiety * HPI: S ymptom(s): patient is a 58 yo male here to discuss issues with anxiety, has struggled with anxiety especially with presentations. does get it with flying. * ROS: G eneral/Constitutional: Denies C hills. D enies F atigue. D enies F ever. D enies H eadache. E NT: Patient denies d ecreased sense of smell, any loss of taste, sore throat. D enies S ore throat. R espiratory: Denies C ough. D enies S hortness of breath at rest. D enies S hortness of breath with exertion. G astrointestinal: Denies D iarrhea. D enies N ausea. M usculoskeletal: Patient denies m uscle aches. P eripheral Vascular: Patient denies r ed and blue toes. P sychiatric: Admits A nxiety. D enies D epressed mood. D enies D ifficulty sleeping. D enies E ating disorder. D enies S uicidal thoughts.? * Medical History: * Surgical History: * Hospitalization/Major Diagno stic Procedure: * Medications: T akingCialis 20 MG Tablet 1/2 tablet Orally Once a day Lansoprazole 30 MG Capsule Delayed Release TAKE 1 CAPSULE BY MOUTH EVERY DAY EpiPen 2-Ravi 0.3 MG/0.3ML Solution Auto-injector as directed Injection once a day for reaction tiZANidine HCl 4 MG Tablet 1 tablet at bedtime as needed Orally Once a day Atorvastatin Calcium 20 MG Tablet TAKE 1 TABLET BY MOUTH EVERY DAY Medication List reviewed and reconciled with the patientTaking Cialis 20 MG Tablet 1/2 tablet Orally Once a day Taking Lansoprazole 30 MG Capsule Delayed Release TAKE 1 CAPSULE BY MOUTH EVERY DAY Taking EpiPen 2-Ravi 0.3 MG/0.3ML Solution Auto-injector as directed Injection once a day for reaction Taking tiZANidine HCl 4 MG Tablet 1 tablet at bedtime as needed Orally Once a day Taking Atorvastatin Calcium 20 MG Tablet TAKE 1 TABLET BY MOUTH EVERY DAY Medication List reviewed and reconciled with the patient * Allergies: A spirin: throat swellingIbuprofen: throat swellingAleve: throat swellingyes[Allergies Verified] Objective: * Vitals: H t: 67.50, Wt: 161, BMI:24.84, BP:148/64, Repeat BP:150/70, Wt-k.03. * Examination: G eneral Examination: GENERAL APPEARANCE: a lert, well hydrated, in no distress.? SKIN: g ood turgor. HEART: n o murmurs, rubs, gallops, regular rate and rhythm.? LUNGS: n o wheezes, rales, rhonchi, good air movement, clear to auscultation bilaterally. Assessment: * Assessment: 1. S ocial phobia involving fear of public speaking - F40.10 (Primary) Plan: * Treatment: * Procedure Codes: * * Sign off status: Completed true * Provider: Amrit Mejia MD Date: 0 07/25/2024 Generated for Shawnee campuzano/Luis/Fidel on: 1 07/20/2024 01:31 PM EST History and Physical Notes * HPI (History of Present Illness) Category Sub-Category Detail Notes Category Not es Symptom(s) patient is a 58 yo male here to discuss issues with anxiety, has struggled with anxiety especially with presentations. does get it with flying Examination Category Sub-Category Detail Notes Category Not es General Examination GENERAL APPEARANCE: alert, w ell hydrated, in no distress HEART: no murmurs, rubs, ga llops, regular rate and rhythm LUNGS: no wheezes, rales, r honchi, good air movement, clear to auscultation bilaterally SKIN: good turgor
--- OUTSIDE RECORDS SUMMARY | 2024-10-09 02:15 | XMS_ITS ---
Author Organization Chaka Mejia MD Address [address] [place] [phone] Care Team Providers Care Glassine Machine Tender Name Role Phone Chaka Mejia Primary Care Provider Results Component Value Reference Range Notes Liver Panel Reviewed date:10/09/2024 12:33:15 PM Interpretation: Performing Lab:[facility], [address] [place] [phone] Notes/Report: Bilirubin Total 1.0 0.0-1.0 mg/dL Bilirubin Direct 0.4 0.0-0.5 mg/dL Aspartate Amino Transferase 34 5-37 U/L Alanine Aminotransferase 42 0-40 U/L Total Protein 7.2 6.5-8.0 g/dL Albumin Level 4.6 3.5-5.0 g/dL Alkaline Phosphatase 70 39-117 U/L Lipid Panel Reviewed date:10/09/2024 12:28:32 PM Interpretation: Performing Lab:[facility], [address] [place] [phone] Notes/Report: Triglycerides 67 <150 mg/dL Desirable Triglyceride: less than 150 mg/dL Borderline High Triglyceride 150-199 mg/dL High Triglyceride: 200-499 mg/dL Very High Triglyceride: greater than or equal to 5OO mg/dL Cholesterol 170 <200 mg/dL Desirable Cholesterol: less than 200 mg/dL Borderline High Cholesterol: 200-239 mg/dL High Cholesterol: greater than 239 mg/dL LDL Cholesterol Calculated 91 <100 mg/dL Desirable LDL: less than 100 mg/dL Near Optimal/Above Optimal LDL: 110-129 mg/dL Borderline High LDL: 130-159 mg/dL High LDL: 160-189 mg/dL Very High LDL: greater than or equal to 190 mg/dL HDL Cholesterol 66 >40 mg/dL Desirable HDL: greater than 40 mg/dL Note: This HDL assay may give artificially low results in patients with liver disease. REASON FOR VISIT fasting liver lipids Encounters Encounter Location Date Provider Diagnosis Chaka Mejia MD [address] [place] [address] Drive [address] [place], [place] [phone] 10/09/2024 Chaka Mejia Elevated LDL cholesterol level E78.00 and Aspirin allergy Z88.8 Assessments Encounter Date Diagnosis (ICD Code) Assessment Notes Treatment Notes Treatment Clinical Notes Section Notes 10/09/2024 Elevated LDL cholesterol level (ICD-10 - E78.00) 10/09/2024 Aspirin allergy (ICD-10 - Z88.8) Plan Of Treatment Next Appt Details Provider Name:Chaka Adams ier, 05/26/2025 10:30:00 AM, [address] [place] [address] Drive, [address], [place], [place], [phone], Progress Notes * EUNICE, WayGarrickOB:1965 (59 yo M)Acc No.[id number]:10/09/2024 Progress Note Patient: Enrique WANG Provider: Amrit Mejia MD :1965 A ge:59 Y S ex:Male Date:10/09/2024 Address:[address] [place], [place] [address]MARIA [id number] Subjective: * Chief Complaints: * 1 . Fasting liver lipids. * Medical History: Objective: * Vitals: Assessment: * Assessment: 1. E levated LDL cholesterol level - E78.00 (Primary) 2 . A spirin allergy - Z88.8 Plan: * Treatment: * Procedure Codes: 3 6415 VENIPUNCT, ROUTINE* * * The named appointment provid er may or may not be the originator of this progress note, and it is not deemed complete until electronically signed by the appointment provider. Sign off status: Pending * Provider: Amrit Mejia MD Date: 0 10/09/2024 Generated for Shawnee campuzano/Luis/Asheritting on: 1 07/20/2024 01:31 PM EST
--- OUTSIDE RECORDS SUMMARY | 2024-10-14 04:00 | XMS_ITS ---
Author Organization Chaka Mejia MD Address [address] [place] [phone] Care Team Providers Care Aeronautical Drafter Name Role Phone Chaak Mejia Primary Care Provider [phone] Allergies Allergen (clinical drug ingredient) Drug/Non Drug Allergy documented on EMR Reaction Allergy Type Onset Date Status ibuprofen Ibuprofen throat swelling Drug Allergy A ctive aspirin Aspirin throat swelling Drug Allergy A ctive Aleve throat swelling Drug Allergy A ctive REASON FOR VISIT 6 month Medications Medication SIG (Take, Route, Frequency, Duration) Notes Start Date End Date Status Lansoprazole 30 MG TAKE 1 CAPSULE BY [facility] EVERY DAY for 90 Active EpiPen 2-Ravi 0.3 MG/0.3ML as directed In jection once a day for reaction for 1 dose 09/21/2016 Active Propranolol HCl 10 MG 1 to 3 tablets Ora lly every 12 hrs for 30 days 07/25/2024 Active tiZANidine HCl 4 MG 1 tablet at bedtime as needed Orally Once a day for 30 days 05/20/2024 Active Atorvastatin Calcium 20 MG TAKE 1 TABLET BY MOUTH EVERY DAY Active Cialis 20 MG 1/2 tablet Orally On a day 12/22/2016 Active Vital Signs Blood pressure systolic 110 mm Hg 10/15/19 25 Blood pressure diastolic 64 mm Hg 025 Height 67.50 in 10/14/2024 Weight 160 lbs 10/14/2024 BMI 24.69 kg/m2 10/14/2024 Encounters Encounter Location Date Provider Diagnosis Chaka Mejia MD [address] [place] [phone] 10/14/2024 Chaka Mejia Elevated LDL cholesterol level E78.00 and 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 Assessments Encounter Date Diagnosis (ICD Code) Assessment Notes Treatment Notes Treatment Clinical Notes Section Notes 10/14/2024 Elevated LDL cholesterol level (ICD-10 - E78.00) doing welll on meds 10/14/2024 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) had an amazing succuess with propanolol Plan Of Treatment Treatment Notes Assessment Notes Elevated LDL cholesterol level doing wel ll on meds Social phobia involving fear of public speaking had an amazing succuess with propanolol Next Appt Details Provider Name:Chaka Adams ier, 05/26/2025 10:30:00 AM, [address] [facility], [address], [place], [place], [phone], Progress Notes * Dakota DAWSONOB:1965 (59 yo M)Acc No.[id number]:10/14/2024 Progress Notes Patient: Enrique WNAG Provider: Amrit Mejia MD :1965 A ge:59 Y S ex:Male Date:10/14/2024 Address:[address] [place] [address] Traci Putnam [phone] Subjective: * Chief Complaints: * 6 month * HPI: S ymptom(s): here for evaluaion of cholesterol. doing well. propranol worked amazingly. * ROS: G eneral/Constitutional: Denies C hills. D enies F atigue. D enies F ever. D enies H eadache. E NT: Denies S ore throat. R espiratory: Denies C ough. D enies S hortness of breath at rest. D enies S hortness of breath with exertion. G astrointestinal: Denies D iarrhea. D enies N ausea. * Medical History: * Surgical History: * [...] TAKE 1 TABLET BY MOUTH EVERY DAY Propranolol HCl 10 MG Tablet 1 to 3 tablets Orally every 12 hrs Medication List reviewed and reconciled with the [...] 1 TABLET BY MOUTH EVERY DAY Taking Propranolol HCl 10 MG Tablet 1 to 3 tablets Orally every 12 hrs Medication List reviewed and reconciled with the patient * Allergies: A spirin: throat swellingIbuprofen: throat swellingAleve: throat swellingyes[Allergies Verified] Objective: * Vitals: H t: 67.50, Wt: 160, BMI:24.69, BP:110/64, Wt-k.58. * P ast Orders: L ab:Liver Panel (Order Date - 10/09/2024) (Collection Date & Time - 10/09/2024 07:15 AM) Value Reference Range Bilirubin Total 1.0 0.0-1.0 - mg/dL Bilirubin Direct 0.4 0.0-0.5 - mg/dL Aspartate Amino Transferase 34 5-37 - U/L Alanine Aminotransferase 42 H 0-40 - U/L Total Protein 7.2 6.5-8.0 - g/dL Albumin Level 4.6 3.5-5.0 - g/dL Alkaline Phosphatase 70 39-117 - U/L L ab:Lipid Panel (Order Date - 10/09/2024) (Collection Date & Time - 10/09/2024 07:15 AM) Value Reference Range Triglycerides 67 <150 - mg/dL Cholesterol 170 <200 - mg/dL LDL Cholesterol Calculated 91 <100 - mg/dL HDL Cholesterol 66 >40 - mg/dL * Examination: G eneral Examination: GENERAL APPEARANCE: a lert, well hydrated, in no distress.? HEAD: n ormocephalic. SKIN: g ood turgor. HEART: r egular rate and rhythm, no murmurs, rubs, gallops.? LUNGS: n o wheezes, rales, rhonchi, good air movement. Assessment: * Assessment: 1. E levated LDL cholesterol level - E78.00 (Primary) 2 . S ocial phobia involving fear of public speaking - F40.10 Plan: * Treatment: 2. S ocial phobia involving fear of public speaking Notes: had an amazing succuess with propanolol * Procedure Codes: * * Sign off status: Completed true * Provider: Amrit Mejia MD Date: 0 10/14/2024 Generated for Shawnee campuzano/Luis/eTransmitting on: 1 07/20/2024 01:31 PM EST History and Physical Notes * HPI (History of Present Illness) Category Sub-Category Detail Notes Category Not es Symptom(s) here for evalua ion of cholesterol. doing well. propranol worked amazingly Examination Category Sub-Category Detail Notes Category Not es General Examination GENERAL APPEARANCE: alert, w ell hydrated, in no distress HEAD: normocephalic HEART: regular rate and rhy thm, no murmurs, rubs, gallops LUNGS: no wheezes, rales, r honchi, good air movement SKIN: good turgor
--- OUTSIDE RECORDS SUMMARY | 2024-10-28 04:09 | XMS_ITS ---
Author Organization Chaka Mejia MD Address [address] [place] [phone] Care Team Providers Care Software Testing Specialist Name Role Phone Chaka Mejia Primary Care Provider [phone] REASON FOR VISIT tick bite Medications Medication SIG (Take, Route, Frequency, Duration) Notes Start Date End Date Status Doxycycline Hyclate 100 MG 1 capsule Ora lly twice a day for 1 days 10/28/2024 Active Encounters Encounter Location Date Provider Diagnosis Chaka Mejia MD [address] [place] [phone] 10/28/2024 Chaka Mejia Plan Of Treatment Medication Medication Name Sig Start Date Stop Date Notes Doxycycline Hyclate 100 MG 1 capsule Ora lly twice a day for 1 days 10/28/2024 Next Appt Details Provider Name:Chaka carbajal, 05/26/2025 10:30:00 AM, [address], [address], [place], [place], [phone], Progress Notes * Dakota DAWSONOB:1965 (59 yo M)Acc No.[id number]:10/28/2024 Patient: Enrique WANG :1965 A ge:59 Y S ex:Male Address:[address] [place] [phone] * Refills Start Doxycycline Hyclate Capsule, 100 MG, Orally, 2 Capsule, 1 capsule, twice a day, 1 days * true * Date: Generated for Shawnee campuzano/Luis/Asheritting on: 07/20/2024 01:31 PM EST
--- OUTSIDE RECORDS SUMMARY | 2024-11-10 06:27 | XMS_ITS ---
Author Organization Chaka Mejia MD Address [address] [place] [phone] Care Team Providers Care Security Strategist Name Role Phone Chaka Mejia Primary Care Provider REASON FOR VISIT New Refill Request Medications Medication SIG (Take, Route, Frequency, Duration) Notes Start Date End Date Status Cialis 20 MG 1/2 tablet Orally On ce a day for 30 days 12/22/2016 Active Encounters Encounter Location Date Provider Diagnosis Chaka Mejia MD [address] [place] [phone] 11/10/2024 Chaka Mejia Erectile dysfunction, unspecified erectile dysfunction type N52.9 Assessments Encounter Date Diagnosis (ICD Code) Assessment Notes Treatment Notes Treatment Clinical Notes Section Notes 11/10/2024 Erectile dysfunction, unspecified erectile dysfunction type (ICD-10 - N52.9) Plan Of Treatment Medication Medication Name Sig Start Date Stop Date Notes Cialis 20 MG 1/2 tablet Orally Once a day for 30 days 12/03 Next Appt Details Provider Name:Chakaishmael Adasm ier, 05/26/2025 10:30:00 AM, [address] [place] [address], [address], [place], [place], [phone], Progress Notes * Dakota DAWSONOB:1965 (59 yo M)Acc No.[id number]:11/10/2024 Patient: Enrique WANG :1965 A ge:59 Y S ex:Male Address:[address] [place] [phone] * Refills Refill Cialis Tablet, 20 MG, Orally, 6, 1/2 tablet, Once a day, 30 days, Refills=5 * true * Date: Generated for Shawnee campuzano/Luis/Asheritting on: 07/20/2024 01:32 PM EST
--- OUTSIDE RECORDS SUMMARY | 2025-05-19 02:15 | XMS_ITS ---
Author Organization Chaka Mejia MD Address [address] [place] [phone] Care Team Providers Care Neuropsychology Division Chief Name Role Phone Chaka Mejia Primary Care Provider [phone] Results Component Value Reference Range Notes UA ClnCatch+Micro w/rflx Cul t (Not yet reviewed by provider) Interpretation: Performing Lab:[facility], [address] [place] [phone] Notes/Report: Urine, Clean Catch Color Urine Yellow Appearance Urine Clear PH 6.5 5.0-9.0 Glucose Urine UA Negative Negative mg/dL Urine Blood Negative Negative Specific [place] - Urine 1.025 1.005-1.025 Urine Protein Negative Neg-Trace mg/dL Urine Ketones Negative Negative mg/dL Nitrite Urine Negative Negative Leukocyte Esterase Urine Negative Negative RBC Urine 0-2 0-2 /HPF WBC Urine 0-5 0-5 /HPF Squamous Epithelial Cell Urine 0-2 0-2 /HPF Bacteria Urine None Seen None Seen Hyaline Casts Urine 0-2 0-2 /LPF Complete Blood Count Auto Di ff Reviewed date:05/19/2025 12:46:56 PM Interpretation: Performing Lab:[facility], [address] [place] [phone] Notes/Report: White Blood Count 5.3 4.8-10.8 X10*3/uL Red Blood Count 5.14 4.60-5.80 X10*6/uL Hemoglobin 15.1 14.0-18.0 g/dl Hematocrit 45.0 42.0-52.0 % Mean Corpuscular Volume 87.5 80.0-98.0 fL Mean Corpuscular Hemoglobin 29.4 27.0-33.0 pg Mean Corpuscular HGB Conc 33.6 31.0-36.0 g/dl Red Cell Distribution Width 13.0 11.0-16.0 % Platelet Count 288 160-400 X10*3/uL Mean Platelet Volume 9.4 9.4-12.4 fL Neutrophils Percent Auto 45.4 45-73 % Imm Gran Pct Auto 0.4 0.0-0.4 % Lymphocytes Percent Auto 37.4 20-40 % Monocytes Percent Auto 10.0 2-11 % Eosinophils Percent Auto 6.0 0-4 % Basophils Percent Auto 0.8 0-2 % NRBC Pct Auto 0.0 0.0-0.2 /100WBC Neutrophils Absolute Auto 2.4 2.0-8.3 x10*3/u L Imm Gran Abs Auto 0.02 0.00-0.03 X10*3/uL Lymphocytes Absolute Auto 2.0 1.2-4.9 X10*3/u L Monocytes Absolute Auto 0.5 0.1-1.2 X10*3/uL Eosinophils Absolute Auto 0.3 0.0-0.4 X10*3/u L Basophils Absolute Auto 0.0 0.0-0.2 X10*3/uL NRBC Abs Auto 0.000 0.0-0.012 X10*3/uL Comprehensive [place]. Panel Fa st Reviewed date:05/19/2025 12:37:11 PM Interpretation: Performing Lab:[facility], [address] [place] [phone] Notes/Report: Sodium 142 135-145 mmol/L Potassium 3.9 3.3-5.1 mmol/L Chloride 106 96-108 mmol/L Carbon Dioxide 29 22-29 mmol/L Anion Gap 11 12-20 Blood Urea Nitrogen 18 9-16 mg/dL Creatinine 0.97 0.5-1.4 mg/dL Estimated Glomerular Filt Rate > 60 Chronic Kidney Disease: Estimated GFR < 60 mL/min/1.73m2 Severe Kidney Disease: Estimated GFR < 15 mL/min/1.73m2 Glucose Fasting 102 60-99 mg/dL A fasting glucose from 100-125 mg/dl is considered impaired (pre-diabetes). Calcium 9.1 8.4-10.2 mg/dL Bilirubin Total 0.9 0.0-1.0 mg/dL Aspartate Amino Transferase 30 5-37 U/L Alanine Aminotransferase 46 0-40 U/L Total Protein 6.7 6.5-8.0 g/dL Albumin Level 4.6 3.5-5.0 g/dL Alkaline Phosphatase 73 39-117 U/L Lipid Panel Reviewed date:05/19/2025 12:36:42 PM Interpretation: Performing Lab:[facility], [address] [place] [phone] Notes/Report: Triglycerides 68 <150 mg/dL Desirable Triglyceride: less than 150 mg/dL Borderline High Triglyceride 150-199 mg/dL High Triglyceride: 200-499 mg/dL Very High Triglyceride: greater than or equal to 5OO mg/dL Cholesterol 165 <200 mg/dL Desirable Cholesterol: less than 200 mg/dL Borderline High Cholesterol: 200-239 mg/dL High Cholesterol: greater than 239 mg/dL LDL Cholesterol Calculated 87 <100 mg/dL Desirable LDL: less than 100 mg/dL Near Optimal/Above Optimal LDL: 110-129 mg/dL Borderline High LDL: 130-159 mg/dL High LDL: 160-189 mg/dL Very High LDL: greater than or equal to 190 mg/dL HDL Cholesterol 65 >40 mg/dL Desirable HDL: greater than 40 mg/dL Note: This HDL assay may give artificially low results in patients with liver disease. PSA,Total (Free>4and<10) Reviewed date:05/19/2025 12:36:51 PM Interpretation: Performing Lab:[facility], [address] [place] [phone] Notes/Report: PSA,Total (Free>4and<10) 0.54 0.00-4.00 ng/mL A Free PSA was not [...] [place] Alinity i Chemiluminescent Microparticle Immunoassay (CMIA) REASON FOR VISIT yearly fasting labs Encounters Encounter Location Date Provider Diagnosis Chaka Mejia MD [address] [place] [address] [place] [phone] 05/19/2025 Chaka Mejia Blood tests for routine general physical examination Z00.00 and Elevated LDL cholesterol level E78.00 Assessments Encounter Date Diagnosis (ICD Code) Assessment Notes Treatment Notes Treatment Clinical Notes Section Notes 05/19/2025 Blood tests for routine general physical examination (ICD-10 - Z00.00) 05/19/2025 Elevated LDL cholesterol level (ICD-10 - E78.00) Plan Of Treatment Pending Test Test Name Order Date UA ClnCatch+Micro w/rflx Cult 05/19/2025 Next Appt Details Provider Name:Chaka Adams ier, 05/26/2025 10:30:00 AM, [address] [place] [address], Suite [facility], [place], [place], [phone], Progress Notes * Dakota DAWSONOB:1965 (59 yo M)Acc No.[id number]:05/19/2025 Progress Note Patient: Enrique WANG Provider: Amrit Mejia MD :1965 A ge:59 Y S ex:Male Date:05/19/2025 Address:[address] [place], [place] [phone] Subjective: * Chief Complaints: * 1 . Yearly fasting labs. * Medical History: Objective: * Vitals: Assessment: * Assessment: 1. B lood tests for routine general physical examination - Z00.00 (Primary) 2 .?Elevated LDL cholesterol level - E78.00 Plan: * Treatment: 2. E levated LDL cholesterol level L AB: UA ClnCatch+Micro w/rflx Cult (Collection Date & Time - 05/19/2025 07:15 AM) L AB: Complete Blood Count Auto Diff (Collection Date & Time - 05/19/2025 07:15 AM) L AB: Comprehensive [place]. Panel Fast (Collection Date & Time - 05/19/2025 07:15 AM) L AB: Lipid Panel (Collection Date & Time - 05/19/2025 07:15 AM) L AB: PSA,Total (Free>4and<10) (Collection Date & Time - 05/19/2025 07:15 AM) * Procedure Codes: 3 6415 VENIPUNCT, ROUTINE* * * The named appointment provid er may or may not be the originator of this progress note, and it is not deemed complete until electronically signed by the appointment provider. Sign off status: Pending * Provider: Amrit Mejia MD Date: 1 07/20/2024 Generated for hSawnee campuzano/Luis/Fidel on: 07/20/2024 01:32 PM EST
[2025-05-19 10:42] LABS: MANUAL DIFF FLAG NO
[2025-05-19 11:02] LABS: Appearance Urine Clear; Glucose Urine UA Negative (Negative); PH 6.5 (5.0-9.0); Specific Gravity - Urine 1.025 (1.005-1.025)
[2025-05-19 11:05] LABS: Hematocrit 45.0 % (42.0-52.0); Hemoglobin 15.1 g/dl (14.0-18.0); Imm Gran Abs Auto 0.02 X10*3/uL (0.00-0.03); Imm Gran Pct Auto 0.4 % (0.0-0.4); Lymphocytes Absolute Auto 2.0 X10*3/uL (1.2-4.9); Mean Corpuscular HGB Conc 33.6 g/dl (31.0-36.0); Mean Corpuscular Hemoglobin 29.4 pg (27.0-33.0); Mean Corpuscular Volume 87.5 fL (80.0-98.0); NRBC Abs Auto 0.000 X10*3/uL (0.0-0.012); NRBC Pct Auto 0.0 /100WBC (0.0-0.2); Platelet Count 288 X10*3/uL (160-400); Red Blood Count 5.14 X10*6/uL (4.60-5.80); White Blood Count 5.3 X10*3/uL (4.8-10.8)
[2025-05-19 11:12] LABS: Alanine Aminotransferase 46 U/L (0-40); Albumin Level 4.6 g/dL (3.5-5.0); Anion Gap 11 (12-20); Aspartate Amino Transferase 30 U/L (5-37); Blood Urea Nitrogen 18 mg/dL (9-16); Calcium 9.1 mg/dL (8.4-10.2); Carbon Dioxide 29 mmol/L (22-29); Chloride 106 mmol/L (96-108); Estimated Glomerular Filt Rate > 60; Potassium 3.9 mmol/L (3.3-5.1); Sodium 142 mmol/L (135-145); Total Protein 6.7 g/dL (6.5-8.0)
[2025-05-19 11:13] LABS: Alkaline Phosphatase 73 U/L (39-117); Cholesterol 165 mg/dL (<200); HDL Cholesterol 65 mg/dL (>40); Triglycerides 68 mg/dL (<150)
[2025-05-19 11:30] LABS: PSA,Total (Free>4and<10) 0.54 ng/mL (0.00-4.00)
--- OUTSIDE RECORDS SUMMARY | 2025-05-19 13:32 | XMS_ITS | Patient Health Record ---
Author Organization Chaka Mejia MD Address [address] [place] [phone] Care Team Providers Care Cider Press Operator Name Role Phone Chaka Mejia Primary Care Provider Allergies Allergen (clinical drug ingredient) Drug/Non Drug Allergy documented on EMR Reaction Allergy Type Onset Date Status ibuprofen Ibuprofen throat swelling Drug Allergy A ctive aspirin Aspirin throat swelling Drug Allergy A ctive Aleve throat swelling Drug Allergy A ctive Results Component Value Reference Range Notes Liver Panel Reviewed date:10/09/2024 12:33:15 PM Interpretation: Performing Lab:[facility], [address] [place] [phone] Notes/Report: Bilirubin Total 1.0 0.0-1.0 mg/dL Bilirubin Direct 0.4 0.0-0.5 mg/dL Aspartate Amino Transferase 34 5-37 U/L Alanine Aminotransferase 42 0-40 U/L Total Protein 7.2 6.5-8.0 g/dL Albumin Level 4.6 3.5-5.0 g/dL Alkaline Phosphatase 70 39-117 U/L Lipid Panel Reviewed date:10/09/2024 12:28:32 PM Interpretation: Performing Lab:[facility], [address] [place] [phone] Notes/Report: Triglycerides 67 <150 mg/dL Desirable Triglyceride: [...] results in patients with liver disease. UA ClnCatch+Micro w/rflx Cul t (Not yet reviewed by provider) Interpretation: Performing Lab:[facility], [address] [place] [phone] Notes/Report: Urine, Clean Catch Color Urine Yellow Appearance Urine Clear PH 6.5 5.0-9.0 Glucose Urine UA Negative Negative mg/dL Urine Blood Negative Negative Specific [place] - Urine 1.025 1.005-1.025 Urine Protein Negative [...] ff Reviewed date:05/19/2025 12:46:56 PM Interpretation: Performing Lab:[facility], [address] [place] [phone] Notes/Report: White Blood Count 5.3 4.8-10.8 X10*3/uL [...] NRBC Abs Auto 0.000 0.0-0.012 X10*3/uL Comprehensive [place]. Panel Fa st Reviewed date:05/19/2025 12:37:11 PM Interpretation: Performing Lab:[facility], [address] [place] [phone] Notes/Report: Sodium 142 135-145 mmol/L Potassium 3.9 [...] Panel Reviewed date:05/19/2025 12:36:42 PM Interpretation: Performing Lab:[address] [phone] Notes/Report: Triglycerides 68 <150 mg/dL Desirable Triglyceride: [...] (Free>4and<10) Reviewed date:05/19/2025 12:36:51 PM Interpretation: Performing Lab:[address] [phone] Notes/Report: PSA,Total (Free>4and<10) 0.54 0.00-4.00 ng/mL A [...] between 4.0 and 10.0 ng/mL. PSA methodology: [place] Alinity i Chemiluminescent Microparticle Immunoassay (CMIA) Reason For Referral No Information Medications Medication SIG (Take, Route, Frequency, Duration) Notes Start Date End Date Status Atorvastatin Calcium 20 MG TAKE 1 TABLET BY MOUTH EVERY DAY for 90 Active Lansoprazole 30 MG TAKE 1 CAPSULE BY MO UTH EVERY DAY for 90 Active EpiPen 2-Ravi 0.3 MG/0.3ML as directed In jection once a day for reaction for 1 dose 09/21/2016 Active Propranolol HCl 10 MG 1 to 3 tablets Ora lly every 12 hrs for 30 days 07/25/2024 Active tiZANidine HCl 4 MG 1 tablet at bedtime as needed Orally Once a day for 30 days 05/20/2024 Active Doxycycline Hyclate 100 MG 1 capsule Ora lly twice a day for 1 days 10/28/2024 Active Cialis 20 MG 1/2 tablet Orally On ce a day for 30 days 12/22/2016 Active Immunizations Vaccine Route Administration Date Status [...] Problem Status W/U Status Risk Notes Problem 341400187 Reflux esophagitis (K21.00) Active confirmed Problem 158295768 Erectile dysfunction, unspecified erectile dysfunction type (N52.9) Active confirmed Problem 284760476 Elevated LDL cholesterol level (E78.00) Active confirmed Problem Irritable bowel syndrome (45292918) IBS (irritable bowel syndrome) (K58.9) Active confirmed Problem 483236957 History of hay fever (Z87.09) Active confirmed Problem 025888576 History of allergy to NSAID (Z88.6) Active confirmed Vital Signs Blood pressure diastolic 64 mm Hg 10/14/2024 Height 67.50 in 10/14/2024 Blood pressure systolic 110 mm Hg 10/14/2024 Weight 160 lbs 10/14/2024 BMI 24.69 kg/m2 10/14/2024 Encounters Encounter Location Date Provider Diagnosis Chaka Mejia MD [address] [place] [address] [address] [place] [phone] 10/09/2024 Chaka Mejia Elevated LDL cholesterol level E78.00 and Aspirin allergy Z88.8 Chaka Mejia MD [address] [place] [address] [id number] 05/19/2025 Chaka Mejia Blood tests for routine general physical examination Z00.00 and Elevated LDL cholesterol level E78.00 Chaka Mejia MD [address] [place] [address] [id number] 05/20/2024 Chaka Mejia Aspirin allergy Z88.8 ; Annual physical exam Z00.00 ; Back muscle spasm M62.830 ; Encounter for screening for malignant neoplasm of colon Z12.11 ; Encounter for screening for malignant neoplasm of rectum Z12.12 ; IBS (irritable bowel syndrome) K58.9 ; Elevated LDL cholesterol level E78.00 ; Colon cancer screening Z12.11 and Depression screening Z13.31 Chaka Mejia MD [address] [id number] 07/25/2024 Chaka Mejia 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 Chaka Mejia MD [address] [place] [id number] 10/14/2024 Chaka Mejia Elevated LDL cholesterol level E78.00 and 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 Chaka Mejia MD [address] [place] [phone] 10/28/2024 Chaka Mejia MD [address] [place] [phone] 11/10/2024 Chaka Mejia Erectile dysfunction, unspecified erectile dysfunction type N52.9 Assessments Encounter Date Diagnosis (ICD Code) Assessment Notes Treatment Notes Treatment Clinical Notes Section Notes 10/09/2024 Elevated LDL cholesterol level (ICD-10 - E78.00) 05/19/2025 Blood tests for routine general physical examination (ICD-10 - Z00.00) 05/20/2024 Aspirin allergy (ICD-10 - Z88.8) 05/20/2024 Annual physical exam (ICD-10 - Z00.00) labs reviewed and discussed with patient 07/25/2024 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) patient verbalized understanding of medication and directions for use 10/14/2024 Elevated LDL cholesterol level (ICD-10 - E78.00) doing welll on meds 10/14/2024 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) had an amazing succuess with propanolol 11/10/2024 Erectile dysfunction, unspecified erectile dysfunction type (ICD-10 - N52.9) 10/09/2024 Aspirin allergy (ICD-10 - Z88.8) 05/19/2025 Elevated LDL cholesterol level (ICD-10 - E78.00) 05/20/2024 Back muscle spasm (ICD-10 - M62.830) 05/20/2024 Encounter for screening for malignant neoplasm of colon (ICD-10 - Z12.11) Cologuard order faxed to [facility] 05/20/2024 Encounter for screening for malignant neoplasm [...] CHEST 2 VIEW PA & LAT 09/25/2022 UA ClnCatch+Micro w/rflx Cult 05/19/2025 Next Appt Details Provider Name:Chaka Adams ier, 05/26/2025 10:30:00 AM, [address] [place] [address], [address], [place], [place], [phone], Insurance Providers Payer Name Payer Address Payer Phone Subscriber Number Group Number Insured Name Patient Relationship to Insured Coverage Start Date Coverage End Date [employer]Z [employer] [address] [place] Nuñez [phone] [id number] Enrique Dawson Self - patient is the insured 6 Medical (General) History Medical History History ICD Code colonoscopy overdue
--- OUTSIDE RECORDS SUMMARY | 2025-05-19 13:32 | XMS_ITS | Clinical Summary ---
Author Organization [facility] Address [address] [place] [phone] Phone Care Team Providers Care Senior Payroll Manager Name Role Phone Unavailable Primary Care Provider [...] 19+ 3-dose series) 1985 Influenza Vaccines (#1) 2025 COVID-19 Vaccine ( - 2024-2 6 season) 2025 HIB Vaccines Aged Out No longer eligi [...]
== END 2025-05-19 07:16 | disposition home or self-care (01) ==
LOC: HO.LNP 07:15
PROVIDERS: Visit Provider Internal Medicine
DX: Z00.00 Encounter for general adult medical examination without abnormal findings (principal); E78.00 Pure hypercholesterolemia, unspecified; Z12.5 Encounter for screening for malignant neoplasm of prostate
CPT/HCPCS: 80053; 80061; 81001; 84153; 85025